=== PATIENT | female | born 1945 | race Caucasian/White ===

== ENCOUNTER → 2016-08-14 | Outpatient (CLI) | payer BC ==
[~2016-08-14] MED LIST: ALBU1AER9 INH; AMLO-110 PO; ASPI81TA28 PO; CLR10 PO; COQ10 PO; FLUT0.0529; GLC/500 PO; HYDR-4852 PO; IRBE1TAB50 PO; LPT10 PO; MULT-845 PO; POLY335019 PO; PSYL55.43 PO; SENN8.6C PO; SNG10 PO; SPR25 PO; ULT50X PO
[2016-08-14 12:14] LABS: ESTIMATED AVERAGE GLUCOSE 143 mg/dl; HA1C FLAG Normal (Normal)
[2016-08-14 13:02] LABS: ALB/GLOB RATIO 1.1 (0.9-2); ALKALINE PHOSPHATASE 85 U/L (45-117); ALT/SGPT 27 U/L (12-78); AST/SGOT 16 U/L (15-37); BLOOD UREA NITROGEN 16 mg/dl (7-18); BUN/CREATININE RATIO 20.6 (10-20); CALCIUM 9.5 mg/dl (8.5-10.1); CARBON DIOXIDE 30 mmol/L (21-32); CHLORIDE 96 mmol/L (98-107); CREATININE 0.76 mg/dl (0.60-1.20); GLUCOSE 104 mg/dl (70-99); HDL CHOLESTEROL 60 mg/dl; POTASSIUM 4.6 mmol/L (3.5-5.1); SODIUM 134 mmol/L (136-145)
[2016-08-14 13:03] LABS: CHOLESTEROL 168 mg/dl (0-200); CHOLESTEROL/HDL RATIO 2.8; LDL CHOLESTEROL CALCULATED 75 mg/dl; TRIGLYCERIDES 167 mg/dl (0-150); VERY LOW DENSITY LIPOPROT CALC 33 mg/dl
== END | disposition home or self-care (01) ==
LOC: C.LAB 10:54
PROVIDERS: ATTEND Family Medicine
DX: E11.9 Type 2 diabetes mellitus without complications (principal); E78.00 Pure hypercholesterolemia, unspecified

== ENCOUNTER → 2016-08-28 | Outpatient (CLI) | payer BC ==
--- NOTE | 2016-08-28 09:26 | DIAGNOSTIC IMAGING REPORT ---
GI SERIES W/AIR ROUTINE CLINICAL HISTORY: Epigastric pain COMPARISON STUDY: None FLUOROSCOPY TIME: 3.2 minutes. FINDINGS: The patient swallowed effervescent granules and barium. There is a sliding hiatal hernia with distal esophageal ring. There was marked reflux. Several subtle distal esophageal erosions are suspected. No gastric masses are visualized. There is no gastric outlet obstruction. The duodenal bulb appears normal. The ligament of Treitz is located in the normal anatomical position. There is a small duodenal diverticulum. IMPRESSION: 1. Sliding hiatal hernia with a distal esophageal ring 2. Marked reflux 3. Suspected subtle distal esophageal erosions 4. No gastric or duodenal bulb abnormalities identified Electronically signed by: Zachary Covington M.D. 08/28/2016 9:25 AM Dictated Date/Time: 08/28/2016 9:22 AM
== END | disposition home or self-care (01) ==
LOC: C.RAD 07:59
PROVIDERS: ATTEND Family Medicine
DX: R10.13 Epigastric pain (principal); K44.9 Diaphragmatic hernia without obstruction or gangrene

== ENCOUNTER → 2017-03-05 | Outpatient (CLI) | payer BC | END | disposition home or self-care (01) | LOC: C.LABMFLN 11:40 | PROVIDERS: ATTEND Family Medicine | DX: R10.11 Right upper quadrant pain (principal) ==

== ENCOUNTER → 2017-03-12 | Outpatient (CLI) | payer BC ==
--- NOTE | 2017-03-12 09:55 | DIAGNOSTIC IMAGING REPORT ---
ABDOMINAL ULTRASOUND, RIGHT UPPER QUADRANT HISTORY: R10.11 Abdominal pain, acute, right upper quadrant. COMPARISON: None. FINDINGS: Pancreas: There is a possible 9 mm hypoechoic focus within the tail the pancreas. This is not well visualized due to the overlying bowel gas. Liver: Unremarkable. Gallbladder: No gallbladder wall thickening. No gallstones. CBD: 4 mm. Right kidney: No hydronephrosis. IMPRESSION: 1. Possible 9 mm hypoechoic focus within the tail the pancreas. This is not well visualized due to overlying bowel gas and could represent adjacent normal mesenteric fat. However, recommend dedicated pancreatic CT for further evaluation.. 2. Normal gallbladder. No gallstones. Electronically signed by: Tre Garcia M.D. 03/12/2017 9:54 AM Dictated Date/Time: 03/12/2017 9:52 AM
== END | disposition home or self-care (01) ==
LOC: C.ULTR 09:07
PROVIDERS: ATTEND Family Medicine
DX: R10.11 Right upper quadrant pain (principal); R93.5 Abnormal findings on diagnostic imaging of other abdominal regions, including retroperitoneum

== ENCOUNTER → 2017-03-12 | Outpatient (CLI) | payer BC | END | disposition home or self-care (01) | LOC: C.MAMM 10:44 | PROVIDERS: ATTEND Family Medicine | DX: M85.88 Other specified disorders of bone density and structure, other site (principal); M85.852 Other specified disorders of bone density and structure, left thigh; M85.851 Other specified disorders of bone density and structure, right thigh ==

== ENCOUNTER → 2017-04-10 | Outpatient (CLI) | payer BC ==
--- NOTE | 2017-04-11 07:44 | MAMMOGRAPHY REPORT ---
BILATERAL DIGITAL SCREENING MAMMOGRAM WITH CAD: 04/10/2017 CLINICAL HISTORY: Routine screening. Patient has no complaints. TECHNIQUE: Bilateral CC and MLO views were obtained. Current study was also evaluated with a Compute r Aided Detection (CAD) system. COMPARISON: Comparison is made to exam dated: 04/06/2016 mammogram - [facility]. BREAST COMPOSITION: There are scattered areas of fibroglandular density in both breasts. FINDINGS: There is evidence of prior bilateral breast surgery. There are benign vascular calcificati ons in both breasts. No suspicious mass, architectural distortion or cluster of microcalcifications is seen. IMPRESSION: ACR BI-RADS CATEGORY 2: BENIGN There is no mammographic evidence of malignancy. A 1 year screening mammogram is recommended. The pa tient will receive written notification of the results. Approximately 10% of breast cancers are not detected with mammography. A negative mammographic report should not delay biopsy if a clinically suggestive mass is present. Alyssa Guevara M.D. ay/:04/10/2017 15:03:27 Grain Merchandising Manager: Yisel NGUYỄN(R)(Emil)(BD), [facility] letter sent: Normal 1/2 BI-RADS Code: ACR BI-RADS Category 2: Benign
== END | disposition home or self-care (01) ==
LOC: C.MAMM 13:15
PROVIDERS: ATTEND Family Medicine
DX: Z12.31 Encounter for screening mammogram for malignant neoplasm of breast (principal)

== ENCOUNTER 2020-03-12 07:09 | Inpatient (IN) ==
--- NOTE | 2020-02-26 14:23 | PAT Medication Instructions ---
Medication Instructions Date of Service February 26, 2020 Home Medications Medication Instructions Recorded montelukast 10 mg tablet 10 mg PO QPM #90 tab 07/01/19 ibandronate 150 mg tablet 150 mg PO .COMPLEX #1 tab 10/14/19 albuterol sulfate 90 mcg/actuation 2 puffs INH Q4H PRN #18 gm 10/27/19 aerosol inhaler metformin 500 mg tablet 500 mg PO BID #180 tab 10/28/19 tramadol 50 mg tablet 50 mg PO QID PRN #120 tab 01/12/20 montelukast 10 mg tablet 10 mg PO QPM ibandronate 150 mg tablet 150 mg PO .COMPLEX albuterol sulfate 90 mcg/actuation aerosol inhaler 2 puffs INH Q4H PRN metformin 500 mg tablet 500 mg PO BID tramadol 50 mg tablet 50 mg PO QID PRN acetaminophen [Tylenol] 650 mg PO QID PRN amlodipine [Norvasc] 10 mg PO QAM aspirin [Adult Low Dose Aspirin] 81 mg PO QAM atorvastatin 20 mg PO QAM fluticasone propionate [Flonase Allergy Relief] 2 sprays INTNAS DAILY PRN multivitamin 1 tab PO QAM vitamins A,C,S-fwcp-ibfkti [PreserVision AREDS] 1 tab PO QAM Continue as directed ibandronate 150 mg tablet 150 mg PO .COMPLEX ASK your prescriber and surgeon aspirin [Adult Low Dose Aspirin] 81 mg PO QAM STOP taking 2 weeks before surgery (or as soon as possible if surgery is within 2 weeks) PreserVision AREDS] 1 tab PO QAM DO NOT take the morning of surgery metformin 500 mg tablet 500 mg PO BID multivitamin 1 tab PO QAM Take morning of surgery With a small sip of water, OTHERWISE NOTHING TO EAT OR DRINK AFTER MIDNIGHT: albuterol sulfate 90 mcg/actuation aerosol inhaler 2 puffs INH Q4H PRN (use if needed; please bring with you to hospital day of surgery if possible) tramadol 50 mg tablet 50 mg PO QID PRN (okay to take up to 4 hours prior to surgery if needed) acetaminophen [Tylenol] 650 mg PO QID PRN (okay to take up to 4 hours prior to surgery if needed) amlodipine [Norvasc] 10 mg PO QAM atorvastatin 20 mg PO QAM fluticasone propionate [Flonase Allergy Relief] 2 sprays INTNAS DAILY PRN (if needed) Take evening before surgery montelukast 10 mg tablet 10 mg PO QPM albuterol sulfate 90 mcg/actuation aerosol inhaler 2 puffs INH Q4H PRN (if needed) metformin 500 mg tablet 500 mg PO BID tramadol 50 mg tablet 50 mg PO QID PRN (if needed) acetaminophen [Tylenol] 650 mg PO QID PRN (if needed) fluticasone propionate [Flonase Allergy Relief] 2 sprays INTNAS DAILY PRN (if needed) Other Notes If you have any questions please call us at [phone] or [phone] or [phone] or [phone]
--- NOTE | 2020-02-27 11:13 | Anesthesiology Consultation ---
Date of Service February 27, 2020 Assessment & Plan (1) Encounter for pre-operative examination: COVID Status: As of 02/26 assessment, patient denies travel to endemic area, known exposure/sick contacts, or symptoms of COVID19. Patient instructed that they and their household members must follow strict social distancing guidelines, wear a mask in public and avoid travel for 14 days prior to surgery. Preoperative COVID19 testing to be completed prior to surgery per surgeon's arra ngements. Patient made aware to self-isolate as much as possible between COVID testing and surgery. S/P 2013 lumbar dec/fusion @ [facility] = MAC #3, ETT 7.0, grade view III. Chart Review Chart Review: Acceptable Risk for Surgery (pending surgeon-ordered PCP clearance 03/05) and Patient seen in Pre Admission Testing Teaching & Discussion Instructed NPO after midnight before surgery, except medications with 15 cc of water. Medication instructions provided according to the PAT guidelines. History Surgery Operation Date: 03/12/20 07:45 Proposed Procedures p L2-L3 Decompression, L2-L5 Fusion, L3-L5 Hardware Removal, Spinal Cord Monitoring - Nicolás Cardoza, Height/Weight Height: 5 ft 4 in Weight: 56.699 kg Allergies Allergy/AdvReac Type Severity Reaction Status Date / Time morphine Allergy Mild mental Verified 02/19/20 12:11 confusion colestipol Allergy Unknown "FELT Verified 02/19/20 12:11 AWFUL" hydrochlorothiazide Allergy Unknown Unknown Verified 02/19/20 12:11 lovastatin Allergy Unknown MUSCLE Verified 02/19/20 12:11 ACHES Medications Home Medications Medication Instructions Recorded Confirmed Last Taken blood sugar diagnostic #10 ea 03/03/19 02/17/20 Unknown lancets #50 ea 03/03/19 02/17/20 Unknown montelukast 10 mg tablet 10 mg PO QPM #90 tab 07/01/19 02/19/20 Unknown ibandronate 150 mg tablet 150 mg PO .COMPLEX #1 tab 10/14/19 02/19/20 Unknown albuterol sulfate 90 mcg/actuation 2 puffs INH Q4H PRN #18 gm 10/27/19 02/19/20 Unknown aerosol inhaler metformin 500 mg tablet 500 mg PO BID #180 tab 10/28/19 02/19/20 Unknown tramadol 50 mg tablet 50 mg PO QID PRN #120 tab 01/12/20 02/19/20 Unknown acetaminophen [Tylenol] 650 mg PO QID PRN 02/19/20 02/19/20 Unknown amlodipine [Norvasc] 10 mg PO QAM 02/19/20 02/19/20 Unknown aspirin [Adult Low Dose Aspirin] 81 mg PO QAM 02/19/20 02/19/20 Unknown atorvastatin 20 mg PO QAM 02/19/20 02/19/20 Unknown fluticasone propionate [Flonase 2 sprays INTNAS DAILY PRN 02/19/20 02/19/20 Unknown Allergy Relief] multivitamin 1 tab PO QAM 02/19/20 02/19/20 Unknown vitamins A,C,P-wukk-qqvqcb 1 tab PO QAM 02/19/20 02/19/20 Unknown [PreserVision AREDS] Past Medical History Medical History Diabetes 1.5, managed as type 2 History of asthma Using albuterol inhaler almost every morning, sometimes in evenings depending on season. HTN (hypertension) Hypercholesterolemia Myofascial pain Osteoporosis Pain of left breast Chronic. Has had mammograms, been seen by breast care center in [place], no etiology. Poor historian Sacroiliitis Exercise / Class Metabolic Activity II 4-5 Yardwork/Stairs/Walk up hill Past Family History Family History Unknown No pertinent family history Past Surgical History Surgical History H/O hysterectomy for benign disease History of bladder surgery History of cardiac cath NO STENTS NEEDED-MANY YRS AGO History of cataract surgery R/L History of colonoscopy History of lumbar spinal fusion Hx of appendectomy Hx of breast reduction, elective Hx of tubal ligation Past Anesthesia History No Hx of Anesthesia Complications and No Family Hx of Anesthesia Complications History of PONV No Hx of PONV and No Hx of Motion Sickness Social History Smoking Status: Never smoker Do You Dip or Chew Tobacco: No Hx Alcohol Use: No Hx Substance Use: No Review of Systems Pt denies any recent chest pain, shortness of breath, palpitations, cough, fever, URI, or uncontrolled acid reflux. Physical Exam Vital Signs BP: 155/80 (pt reports anxiety today) P: 86bpm SPO2: 96% RA T: 98.3 F R: 12 ENMT Mouth: no dental restorations, no chipped teeth and no loose teeth Thyromental Distance: < 3.5 Finger Breadths (3) Mallampati Class: II Neck + shortened thyromental distance; neck extension not limited Respiratory normal respiratory effort Auscultation: lungs clear to auscultation bilaterally Cardiovascular Rate/Rhythm: regular rate and regular rhythm Heart Sounds: no murmur Extremities: no edema Testing Laboratory Results 02/27/20 11:20 02/27/20 11:20 PT 10.6 Seconds (9.0-12.0) 02/27/20 11:20 INR 1.0 (0.9-1.1) 02/27/20 11: APTT 23.0 Seconds (21.0-31.0) 02/27/20 11:20 Hemoglobin A1c 7.5 % (4.5-5.6) H 02/27/20 11:20 Urine Color Dark Yellow 02/27/20 11:20 Urine Appearance Clear (Clear) 02/27/20 11:20 Urine pH 5.0 (4.5-7.5) 02/27/20 11:20 Ur Specific Vance 1.035 (1.000-1.030) H 02/27/20 11:20 Urine Protein Negative (Negative) 02/27/20 11:20 Urine Glucose (UA) 1+ (Negative) H 02/27/20 11:20 Urine Ketones 1+ (Negative) H 02/27/20 11:20 Urine Nitrite Negative (Negative) 02/27/20 11:20 Ur Leukocyte Esterase Negative (Negative) 02/27/20 11:20 Blood Type B Negative 02/27/20 11:20 Antibody Screen POSITIVE A 02/27/20 11:20 Spoke with Myrtle at [facility] re: + antibodies (anti-D and anti-C). No further pre-op workup will be needed for this patient. Electrocardiogram Date: 02/27/20 Findings: + NSR @ (81bpm) No significant change from 2013. Chest X-Ray Date: 02/27/20 Findings: + NAD
[2020-02-27 12:28] LABS: Basophils # (auto) 0.02 K/uL (0-0.2); Basophils % (auto) 0.2 %; Eosinophils # (auto) 0.04 K/uL (0-0.5); Eosinophils % (auto) 0.4 %; Hematocrit (blood only) 38.2 % (37-47); Hemoglobin 12.7 g/dL (12.0-16.0); Immature Granulocytes # (auto) 0.04 K/uL (0.00-0.02); Immature Granulocytes % (auto) 0.4 %; Lymphocytes # (auto) 2.34 K/uL (1.2-3.4); Lymphocytes % (auto) 20.6 %; Mean Corpuscular Hemoglobin 32.2 pg (25-34); Mean Corpuscular Hgb Conc 33.2 g/dL (32-36); Mean Platelet Volume 9.2 fL (7.4-10.4); Monocytes # (auto) 1.24 K/uL (0.11-0.59); Monocytes % (auto) 10.9 %; Neutrophils % (auto) 67.5 %; Platelet Count 438 K/uL (130-400); RDW Coefficient of Variation 13.7 % (11.5-14.5); RDW Standard Deviation 48.9 fL (36.4-46.3); Red Blood Count 3.94 M/uL (4.2-5.4); White Blood Count 11.38 K/uL (4.8-10.8)
[2020-02-27 12:35] LABS: BUN Creatinine Ratio 27.6 (10-20); Calcium 9.6 mg/dl (8.5-10.1); Creatinine Clr Calc Pharmacy 58.4 ml/min; Est GFR (Non-African American) 81.1; Potassium 3.6 mmol/L (3.5-5.1)
--- NOTE | 2020-02-27 12:36 | XRay Report ---
TWO VIEW CHEST CLINICAL HISTORY: Preoperative examination. FINDINGS: PA and lateral chest radiographs are compared to study dated 10/16/2018. The cardiomediastin al silhouette is unremarkable noting atherosclerotic calcification of the thoracic aorta. The lungs and pleural spaces are clear. There is no pneumothorax. The skeletal structures are osteopenic. A com pression deformity is noted at the thoracolumbar junction. Fusion hardware is partially imaged in the lumbar spine. IMPRESSION: No active disease in the chest. ACT 112: Negative or not required by law. Electronically signed by: Gordon Banda M.D. 02/27/2020 12:35 PM
[2020-02-27 12:38] LABS: Appearance Urine Clear (Clear); Blood Urine Negative (Negative); Color Urine Dark Yellow; Glucose Urine UA 1+ (Negative); Ketones Urine 1+ (Negative); Leukocyte Esterase Urine Negative (Negative); Nitrite Urine Negative (Negative); Partial Thromboplastin Ratio 0.8; Protein Urine Negative (Negative); Prothrombin Time 10.6 Seconds (9.0-12.0); Specific Gravity Urine 1.035 (1.000-1.030); Urobilinogen Urine Negative (Negative)
[2020-02-27 12:40] LABS: Estimated Average Glucose 169 mg/dl; Hemoglobin A1C 7.5 % (4.5-5.6)
[2020-02-27 12:50] LABS: Bilirubin Urine Negative (Negative); Ictotest Urine Negative (Negative)
--- NOTE | 2020-02-27 23:00 | Electrocardiogram Report ---
Test Reason : Blood Pressure : / mmHG Vent. Rate : 081 BPM Atrial Rate : 081 BPM P-R Int : 174 ms QRS Dur : 080 ms QT Int : 358 ms P-R-T Axes : 067 062 061 degrees QTc Int : 415 ms Normal sinus rhythm Normal ECG When compared with ECG of 22-DEC-2013 10:52, No significant change was found Confirmed by Venkata Mahmood ([id number]) on 02/27/2020 11:00:28 PM Referred By: Nicolás Cardoza Confirmed By:Venkata Mahmood
[~2020-03-12 07:09] MED LIST changes: +ACETAMINOPHEN 500 MG TAB PO SCH; -ALBU1AER9 INH; -AMLO-110 PO; -ASPI81TA28 PO; -CLR10 PO; -COQ10 PO; +CeleBREX 200 MG CAP PO SCH; -FLUT0.0529; +GABAPENTIN 300 MG CAP PO SCH; -GLC/500 PO; -HYDR-4852 PO; -IRBE1TAB50 PO; -LPT10 PO; +LR 15ML/HR IV SCH; -MULT-845 PO; -POLY335019 PO; -PSYL55.43 PO; -SENN8.6C PO; -SNG10 PO; -SPR25 PO; -ULT50X PO; +ceFAZolin 1000MG 1,000 MG/7.5 ML SYR IV SCH
[2020-03-12] MEDS ORDERED: NEOSTIGMINE METHYLSULFATE 1 MG/ML 10ML VIAL ONE ×2 (08:21→11:46)
[2020-03-12] MEDS ORDERED: ONDANSETRON INJ 2 MG/ML 2 ML VIAL ONE ×2 (08:21→11:35)
[2020-03-12] MEDS ORDERED: fentaNYL citrate 100 MCG/2 ML VIAL ONE ×3 (08:21→12:36)
[2020-03-12] MEDS ORDERED: GLYCOPYRROLATE 0.2 MG/ML VIAL ONE ×2 (08:21→11:46)
[2020-03-12] MEDS ORDERED: MIDAZOLAM HCL 1 MG/ML 2ML VIAL ONE (08:21)
[2020-03-12] MEDS ORDERED: PROPOFOL IV EMULSION 10 MG/ML 20 ML VIAL IV ONE (08:21)
[2020-03-12] MEDS ORDERED: ROCURONIUM BROMIDE 10 MG/ML 5 ML VIAL IV ONE (08:21)
[2020-03-12] MEDS ORDERED: DEXAMETHASONE SOD INJ 4 MG/ML VIAL ONE (08:21)
[2020-03-12] MEDS ORDERED: LIDOCAINE HCL 2% 2 ML VIAL/AMP(20MG/ML) INFIL ONE (08:21)
--- NOTE | 2020-03-12 08:45 | History & Physical Bridge Note ---
Date of Service March 12, 2020 History & Physical Bridge Note I have examined the patient, reviewed the History & Physical and in the interval since the performance of the History & Physical I have noted the following changes of clinical significance: no changes noted
--- NOTE | 2020-03-12 08:46 | History & Physical Report ---
Date of Service March 12, 2020 Assessment & Plan (1) Neurogenic claudication due to lumbar spinal stenosis: Admission and Anticipated Discharge Date Admission Date: L2-L3 decompression, L2-L5 fusion, L3-L5 with hardware removal History of Present Illness Chief Complaint: Back and leg pain Primary Care Provider: Gordon Sellers MD This is a 74-year-old female who presents with chronic persistent back and leg pain after failing course of nonoperative care she is here for surgical intervention. Allergies Allergy/AdvReac Type Severity Reaction Status Date / Time morphine Allergy Mild mental Verified 03/12/20 07:43 confusion colestipol Allergy Unknown "FELT Verified 03/12/20 07:43 AWFUL" hydrochlorothiazide Allergy Unknown Unknown Verified 03/12/20 07:43 lovastatin Allergy Unknown MUSCLE Verified 03/12/20 07:43 ACHES Home Medications Home Medications Medication Instructions Recorded Confirmed Type blood sugar diagnostic #10 ea 03/03/19 03/08/20 History lancets #50 ea 03/03/19 03/08/20 History montelukast 10 mg tablet 10 mg PO QPM #90 tab 07/01/19 03/12/20 Rx ibandronate 150 mg tablet 150 mg PO .COMPLEX #1 tab 10/14/19 03/12/20 Rx albuterol sulfate 90 mcg/actuation 2 puffs INH Q4H PRN #18 gm 10/27/19 03/12/20 Rx aerosol inhaler metformin 500 mg tablet 500 mg PO BID #180 tab 10/28/19 03/12/20 Rx tramadol 50 mg tablet 50 mg PO QID PRN #120 tab 01/12/20 03/12/20 Rx acetaminophen [Tylenol] 650 mg PO QID PRN 02/19/20 03/12/20 History amlodipine [Norvasc] 10 mg PO QAM 02/19/20 03/12/20 History aspirin [Adult Low Dose Aspirin] 81 mg PO QAM 02/19/20 03/12/20 History atorvastatin 20 mg PO QAM 02/19/20 03/12/20 History fluticasone propionate [Flonase 2 sprays INTNAS DAILY PRN 02/19/20 03/12/20 History Allergy Relief] multivitamin 1 tab PO QAM 02/19/20 03/12/20 History vitamins A,C,B-wzwp-mpbeyk 1 tab PO QAM 02/19/20 03/12/20 History [PreserVision AREDS] Past Med/Surg History Medical History Diabetes 1.5, managed as type 2 History of asthma Using albuterol inhaler almost every morning, sometimes in evenings depending on season. HTN (hypertension) Hypercholesterolemia Myofascial pain Osteoporosis Pain of left breast Chronic. Has had mammograms, been seen by breast care center in [place], no etiology. Poor historian Sacroiliitis Surgical History H/O hysterectomy for benign disease History of bladder surgery History of cardiac cath NO STENTS NEEDED-MANY YRS AGO History of cataract surgery R/L History of colonoscopy History of lumbar spinal fusion Hx of appendectomy Hx of breast reduction, elective Hx of tubal ligation Family History Unknown No pertinent family history Social History Smoking Status: Never smoker Second Hand Exposure: Yes (FATHER SMOKED); Do You Dip or Chew Tobacco: No; Hx Alcohol Use: No Hx Substance Use: No Preferred Language: Swedish Communication Ability: Effective Visual Impairment: No Limitations Hearing Ability: Normal Supervisor Cook Room Required: No Beliefs That Will Affect Care: None marital status: Current Living Situation: Spouse current occupational status: retired Other Information That Helps Us Care for You: No Feels Safe at Home: Yes Safety Concerns: Feels Safe At This Time Assistive Devices: Brace/Splint/Immobilizer and Glasses Assistive Devices Comment: BACK BRACE PRN Physical Exam Physical Exam: Patient is alert and oriented Heart regular rate and rhythm Lungs clear to auscultation Results & Data ([facility]) Vital Signs (Past 12 Hours) Vital Signs Temp Pulse Resp BP Pulse Ox 03/12/20 07:53 36.8 C 90 20 174/89 H 98
[2020-03-12] MEDS ORDERED: BUPIVACAINE/EPINEPHRINE 0.25% 1:200,000 30 ML VIAL ONE (09:08)
[2020-03-12] MEDS ORDERED: BACITRACIN INJ 50,000 UNIT VIAL ONE ×2 (09:08)
[2020-03-12] MEDS ORDERED: FLOSEAL HEMOSTATIC MATRIX 10ML TOP ONE (11:29)
--- NOTE | 2020-03-12 11:46 | Operative Report ---
Post Operative Report Pre & Post Diagnosis Operation Date: 03/12/20 09:05 Pre-Op Diagnosis: Spinal Stenosis, Lumbar Region with Neurogenic Claudication Post-Op Diagnosis: Spinal Stenosis, Lumbar Region with Neurogenic Claudication I identified the patient and participated in the time-out.: Yes Procedure Operation Date: 03/12/20 09:05 Actual Procedures #1 removal of posterior instrumentation L3-4 L4-5 per #2 exploration of fusion L3-4 L4-5. #3 lumbar decompression with bilateral medial facetectomies and foraminotomies L1-2 and L2-3. #4 posterior spinal fusion L2-3. #5 placement posterior instrumentation L2-3. #6 interbody fusion L2-3. #7 placement of peek cage 8 x 22 mm at L2-3. #8 placement locally harvested morselized autograft in the posterior lateral gutters. #9 placement infuse collagen sponge, master graft in the posterior lateral gutters and ostial amp and interbody space. Surgeon Nicolás Cardoza, Production Line Solderer Basim Isaacs Estimated Blood Loss 150 Findings Consistent with Post-Op Diagnosis Specimens None Indications This is a 74-year-old female well-known to me the presents with above-mentioned diagnosis after failing course of nonoperative care is here for the above- mentioned procedure. Description of Procedure Patient was met with identified informed consent obtained. Patient was then taken to the operative suite Eyes inspected to ensure no external pressure placed upon the. This point the lumbar spine was prepped and draped in a xochilt rile fashion. Sharp dissection with the assistance of Bovie cautery was performed down to and exposing the lamina and transverse processes of L2 and instrumentation at L3-L4-L5 bilaterally. Then proceeded to remove the hardware bilaterally explore the fusion mass noting it to be mature and intact. And then performed a complete laminectomy of L2 partial laminectomy L1 including bilateral medial facetectomies and and foraminotomies addressing severe spinal stenosis. Pedicle screws were then placed in L2 and L3 bilaterally with assistance of fluoroscopy and the properly sized gregorio placed. By way of a transfemoral approach on the right complete discectomy was performed endplates curetted to subcortical any bone and a 8 x 22 mm peek cage filled with osteobone graft tapped in position. The rods were then locked in final position bilaterally. The transverse processes of L2 and L3 burred to subcortical bleeding bone. Infuse collagen sponge master graft local autograft was placed in the posterior lateral gutters. 15 round BAYRON drain inserted. The incision was then closed with 1 Vicryl the fascia 2-0 Vicryl subcutaneously and 4 Monocryl for final skin closure. Steri-Strip sterile dressings placed. Patient waken taken to PACU stable condition. Please note spinal cord monitoring was utilized at the procedure no changes noted. Lastly Basmi Isaacs was present at the entire surgery involved the patient positioning complex portions of the surgery and final skin closure. I attest to the content of the Intraoperative Record and any orders documented therein. Any exceptions are noted below.
--- NOTE | 2020-03-12 11:47 | Fluoroscopy Report ---
FL lumbar spine 2-3V CLINICAL HISTORY: L2-L3 DECOMPRESSION L2-L5 FUSION L3-L5 HW REMOVAL COMPARISON STUDY: Lumbar spine radiographs November 19, 2019. FLUOROSCOPY TIME: 11 seconds. FLUOROSCOPIC IMAGES: 2 FINDINGS: L3-L5 hardware has been removed. A previous L4-L5 discectomy is noted. Interval L2-L3 disce ctomy with interbody spacer placement as noted. Posterior decompression is noted. There are bilateral pedicle screws at the L2 and L3 levels. Hardware is intact. There are no unexpected radiopaque forei gn bodies. Old L1 compression fracture is unchanged. IMPRESSION: Interval L2-L3 discectomy, posterior decompression and bilateral pedicle screw fusion. ACT 112: Negative or not required by law. Electronically signed by: Chet Hastings M.D. 03/12/2020 11:45 AM
[2020-03-12] MEDS: fentaNYL citrate 100 MCG/2 ML VIAL IV PRN ×4 (12:38→12:53)
[2020-03-12] MEDS ORDERED: fentaNYL citrate 100 MCG/2 ML VIAL IV PRN (12:58)
[2020-03-12] MEDS ORDERED: ePHEDrine sulfate 50 MG/ML AMP IV PRN (12:58)
[2020-03-12] MEDS ORDERED: ONDANSETRON INJ 2 MG/ML 2 ML VIAL IV PRN ×2 (12:58→13:36)
[2020-03-12] MEDS ORDERED: ATROPINE SULFATE 0.1 MG/ML 10ML SYR IV PRN (12:58)
--- NOTE | 2020-03-12 13:30 | Anesthesiology Progress Note ---
Date of Service March 12, 2020 Anesthesia Post Procedure Vital Signs Vital Signs: Temp Pulse Pulse Resp BP BP Pulse Ox 03/12/20 13:15 75 13 129/62 98 03/12/20 13:10 36.2 C L 72 17 144/65 H 97 03/12/20 13:00 72 12 138/65 97 03/12/20 12:50 72 13 131/65 99 03/12/20 12:40 72 14 154/66 H 98 03/12/20 12:30 73 10 L 146/65 H 99 03/12/20 12:20 72 12 155/73 H 100 03/12/20 12:12 36.3 C L 73 11 L 107/79 99 03/12/20 07:53 36.8 C 90 20 174/89 H 98 Pain Intensity Lower Back: Pain Intensity: 4 Transfer of Care Handoff Completed per policy Notes Mental Status: alert / awake / arousable and participated in evaluation Patient Amnestic to Procedure: Yes Nausea / Vomiting: adequately controlled Pain: adequately controlled Airway Patency, RR, SpO2: stable & adequate BP & HR: stable & adequate Hydration State: stable & adequate Anesthetic Complications: no major complications apparent and Pt Satisfied with anesthetic care
[2020-03-12] MEDS: SODIUM CHLORIDE 0.9% 1000ML 1,000 ML IV SCH ×2 (13:35→21:31)
[2020-03-12] MEDS ORDERED: METOCLOPRAMIDE HCL INJ 5 MG/ML 2 ML VIAL IV PRN (13:36)
[2020-03-12] MEDS ORDERED: PROMETHAZINE HCL 12.5 MG in SODIUM CHLORIDE 0.9% 50 ML IV PRN (13:36)
[2020-03-12] MEDS ORDERED: NALOXONE HCL 0.4 MG/1 ML VIAL/CARP IV PRN (13:36)
[2020-03-12] MEDS ORDERED: bisacodyL 10 MG SUPP PR PRN (13:36)
[2020-03-12] MEDS ORDERED: hydrOXYzine HCl 25 MG TAB PO PRN (13:36)
[2020-03-12] MEDS ORDERED: FAMOTIDINE 20 MG TAB PO PRN (13:36)
[2020-03-12] MEDS ORDERED: SOD PHOSPHATE/SOD BIPHOSPHATE ENEMA 132 ML BTL PR PRN (13:36)
[2020-03-12] MEDS ORDERED: diphenhydrAMINE Capsule 25 MG CAP PO PRN (13:36)
[2020-03-12] MEDS ORDERED: LORazepam 0.5 MG/1 ML VIAL IV PRN (13:36)
[2020-03-12] MEDS ORDERED: DO NOT ADMINISTER FLU VACCINE PRN (13:36)
[2020-03-12] MEDS ORDERED: ONDANSETRON 4 MG OD TAB PO PRN (13:36)
[2020-03-12] MEDS ORDERED: ACETAMINOPHEN 1,000 MG/100 ML VIAL IV PRN (13:36)
[2020-03-12] MEDS ORDERED: LORazepam 0.5 MG TAB PO PRN (13:36)
[2020-03-12] MEDS ORDERED: DO NOT ADMINISTER PNEUMOCOCCAL VACCINE PRN (13:36)
[2020-03-12] MEDS ORDERED: FLUTICASONE PROPIONATE NA SPR 16 GM BTL PRN (13:36)
[2020-03-12] MEDS ORDERED: ALUMINUM/MAGNESIUM SUSP 30 ML UDC PO PRN (13:36)
[2020-03-12] MEDS ORDERED: MAGNESIUM HYDROXIDE SUSP 30 ML UDC PO PRN (13:36)
[2020-03-12] MEDS ORDERED: ALBUTEROL HFA 8 GM INHALER INH PRN (13:36)
[2020-03-12] MEDS ORDERED: HYDROmorphone INJ 1 MG/ML SYRINGE IV PRN (13:36)
[2020-03-12] MEDS ORDERED: HYDROmorphone INJ 0.5 MG/0.5 ML SYR IV PRN (13:36)
[2020-03-12] MEDS ORDERED: PHARMACY GLYCEMIC MGMT CONSULT PRN (14:01)
[2020-03-12] MEDS ORDERED: CARBOHYDRATES FOR HYPOGLYCEMIA PO PRN (14:15)
[2020-03-12] MEDS ORDERED: GLUCOSE 40% GEL 15 GM TUBE PO PRN (14:15)
[2020-03-12] MEDS ORDERED: DEXTROSE 50% 50 ML SYRINGE IV PRN (14:15)
[2020-03-12] MEDS ORDERED: GLUCOSE 10 TABS/TUBE PO PRN (14:15)
[2020-03-12] MEDS ORDERED: GLUCAGON FOR INJ 1 MG VIAL SQ PRN (14:15)
--- NOTE | 2020-03-12 14:20 | Pharmacy Report ---
Pharmacy Glycemic Short Note 2 - Date of Service March 12, 2020 - Glycemic Short BSG Results (Last 24 hours): 03/12/20 03/12/20 07:41 12:22 POC Glucose 138 H 167 H OUTPATIENT ANTIDIABETIC REGIMEN: * METFORMIN 500 mg Po BID * A1c = 7.5% (02/27/20) ASSESSMENT: * Tova is a 74 yo female s/p spinal surgery * Pt is maintained on oral antidiabetic agents as an outpatient * Will hold oral agents for admission and utilize SQ basal bolus insulin regimen which is the recommended regimen for inpatient glycemic control. * A one time dose of NPH will be given to cover the effects of dexamethasone IV given in the OR * Novolog orders per weight stress/3 for POD #0 PLAN FOR INPATIENT GLYCEMIC CONTROL: * Hold outpatient oral diabetes medications * Basal insulin * NPH 15 units SQ x 1 * Bolus insulin * NovoLog per scale ACHS or Q6hrs while NPO * Goal Range: Low 110 mg/dL - High 140 mg/dL * Correction Factor: 25 mg/dL/unit * Nutritional / Prandial insulin per carb ratio of 1 unit per 9 grams CHO consumed PLAN FOR DISCHARGE: * A1c = 7.5% (02/27/20) * Recommend titration of metformin as tolerated to goal dose of 1000 mg PO BID * increase by 500 mg per week * administer with meals to avoid GI upset
[2020-03-12] MEDS ORDERED: NovoLIN-N (NPH) PER UNIT CHARGE SQ ONE (15:00)
[2020-03-12] MEDS: ceFAZolin 1000MG 1,000 MG/7.5 ML SYR IV SCH (16:52)
--- NOTE | 2020-03-12 18:03 | Hospitalist Consultation ---
Date of Consultation March 12, 2020 Assessment & Plan (1) Neurogenic claudication due to lumbar spinal stenosis: S/p removal of instrumentation of L3-4 & L4-5, decompression of L1-2 and L2-3, and fusion of L2-[address] Cardoza on 03/12/2020. - At risk for acute blood loss anemia - Will monitor hgb - Post-operative care per surgical team (2) HTN (hypertension): BP is 150/75 after surgery. - Continue amlodipine (3) Diabetes 1.5, managed as type 2: A1c was 7.5% this month. - Hold metformin - Sliding scale insulin - Glycemic pharmacist consulted (4) Hypercholesterolemia: - Continue statin (5) History of asthma: No shortness of breath on exam at this time. - Continue montelukast - DuoNebs PRN (6) DVT prophylaxis: SCDs - Heparin per primary team History of Present Illness Attending Physician: Nicolás Cardoza, DO History of Present Illness 74yo F w/ hx of DM, HTN, intractable back pain who presents as a routine consult for medical care after removal of instrumentation of L3-4 & L4-5, decompression of L1-2 and L2-3, and fusion of L2-3. In the immediate post-operative setting, she is comfortable and has no major issues. She reports she can feel the back is "there," but is not in pain per-se. She denies any shortness of breath, denies other pain, denies nausea, vomiting, or other issues. Allergies Allergy/AdvReac Type Severity Reaction Status Date / Time hydrochlorothiazide Allergy Unknown Unknown Verified 03/12/20 07:43 colestipol AdvReac Intermediate "FELT Verified 03/12/20 11:31 AWFUL" lovastatin AdvReac Mild MUSCLE Verified 03/12/20 11:31 ACHES morphine AdvReac Mild mental Verified 03/12/20 11:31 confusion Home Medications Home Medications Medication Instructions Recorded Confirmed Type blood sugar diagnostic #10 ea 03/03/19 03/08/20 History lancets #50 ea 03/03/19 03/08/20 History montelukast 10 mg tablet 10 mg PO QPM #90 tab 07/01/19 03/12/20 Rx ibandronate 150 mg tablet 150 mg PO .COMPLEX #1 tab 10/14/19 03/12/20 Rx albuterol sulfate 90 mcg/actuation 2 puffs INH Q4H PRN #18 gm 10/27/19 03/12/20 Rx aerosol inhaler metformin 500 mg tablet 500 mg PO BID #180 tab 10/28/19 03/12/20 Rx tramadol 50 mg tablet 50 mg PO QID PRN #120 tab 01/12/20 03/12/20 Rx acetaminophen [Tylenol] 650 mg PO QID PRN 02/19/20 03/12/20 History amlodipine [Norvasc] 10 mg PO QAM 02/19/20 03/12/20 History aspirin [Adult Low Dose Aspirin] 81 mg PO QAM 02/19/20 03/12/20 History atorvastatin 20 mg PO QAM 02/19/20 03/12/20 History fluticasone propionate [Flonase 2 sprays INTNAS DAILY PRN 02/19/20 03/12/20 History Allergy Relief] multivitamin 1 tab PO QAM 02/19/20 03/12/20 History vitamins A,C,[id number]-tszt-mngymp 1 tab PO QAM 02/19/20 03/12/20 History [PreserVision AREDS] Patient History Medical History Diabetes 1.5, managed as type 2 History of asthma Using albuterol inhaler almost every morning, sometimes in evenings depending on season. HTN (hypertension) Hypercholesterolemia Myofascial pain Osteoporosis Pain of left breast Chronic. Has had mammograms, been seen by breast care center in [place], no etiology. Poor historian Sacroiliitis Surgical History H/O hysterectomy for benign disease History of bladder surgery History of cardiac cath NO STENTS NEEDED-MANY YRS AGO History of cataract surgery R/L History of colonoscopy History of lumbar spinal fusion Hx of appendectomy Hx of breast reduction, elective Hx of tubal ligation Family History Unknown No pertinent family history Social History Smoking Status: Never smoker Second Hand Exposure: Yes (FATHER SMOKED); Do You Dip or Chew Tobacco: No; Hx Alcohol Use: No Hx Substance Use: No Preferred Language: Croatian Communication Ability: Effective Visual Impairment: No Limitations Hearing Ability: Normal Basket Maker Required: No Beliefs That Will Affect Care: None marital status: Current Living Situation: Spouse current occupational status: retired Other Information That Helps Us Care for You: No Feels Safe at Home: Yes Safety Concerns: Feels Safe At This Time Assistive Devices: Brace/Splint/Immobilizer and Glasses Assistive Devices Comment: BACK BRACE PRN Review of Systems Review of Systems: All systems reviewed & are unremarkable except as noted in HPI & below Physical Exam Constitutional: WD/WN, vitals as above Eyes: EOM intact bilaterally; no conjunctival abnormality ENMT: external ear and nose normal, oropharynx normal Neck: trachea midline, no thyromegaly normal visual inspection Respiratory: normal respiratory effort, lungs clear to auscultation no respiratory distress Cardiovascular: RRR, no murmur, no edema Gastrointestinal (Abdomen): Inspection/Auscultation: abdomen normal to inspection; abdomen not distended Musculoskeletal: no cyanosis or clubbing, extremities motor strength 5/5 Spine: + lumbar spinal tenderness (Bandage and drain present.) Skin: no rashes, warm and dry Neurologic: moves all extremities and awake Psychiatric: Orientation: alert, oriented to person and cooperative Results & Data Results & Data ([facility]) Vital Signs (Past 12 Hours) Vital Signs Temp Pulse Pulse Pulse Resp BP BP 03/12/20 17:25 03/12/20 16:32 36.2 C L 82 77 14 148/73 H 03/12/20 15:25 36.8 C 76 16 138/67 03/12/20 14:25 73 16 139/68 03/12/20 13:57 36.4 C L 76 14 144/69 H 03/12/20 13:25 36.5 C 71 16 149/69 H 03/12/20 13:15 75 13 129/62 03/12/20 13:10 36.2 C L 72 17 144/65 H 03/12/20 13:00 72 12 138/65 03/12/20 12:50 72 13 131/65 03/12/20 12:40 72 14 154/66 H 03/12/20 12:30 73 10 L 146/65 H 03/12/20 12:20 72 12 155/73 H 03/12/20 12:12 36.3 C L 73 11 L 107/79 03/12/20 07:53 36.8 C 90 20 174/89 H Pulse Ox 03/12/20 17:25 96 03/12/20 16:32 100 03/12/20 15:25 99 03/12/20 14:25 98 03/12/20 13:57 98 03/12/20 13:25 97 03/12/20 13:15 98 03/12/20 13:10 97 03/12/20 13:00 97 03/12/20 12:50 99 03/12/20 12:40 98 03/12/20 12:30 99 03/12/20 12:20 100 03/12/20 12:12 99 03/12/20 07:53 98 PG Care Time/CCT Total # of Minutes Spent Total Time Spent with Patient: Total time spent is greater than 50% in coordination of care (as documented) at patient's floor/unit and/or counseling patient: Coding Level of Care Code 88807 Inpt Consult Level 3 Diagnoses Neurogenic claudication due to lumbar spinal stenosis M48.062 HTN (hypertension) I10 Diabetes 1.5, managed as type 2 E13.9 Hypercholesterolemia E78.00 History of asthma Z87.09 DVT prophylaxis Z29.9
[2020-03-12] MEDS: INSULIN ASPART 100 UNITS/ML 3 ML PEN SC SCH ×2 (18:15→21:22)
[2020-03-12] MEDS: DOCUSATE SODIUM/SENNA 50/8.6MG TAB PO SCH (21:23)
[2020-03-12] MEDS: MONTELUKAST SODIUM 10 MG TABLET PO SCH (21:23)
[2020-03-13] MEDS: ceFAZolin 1000MG 1,000 MG/7.5 ML SYR IV SCH (00:09)
[2020-03-13] MEDS: traMADol HCL 50 MG TABLET PO PRN ×2 (01:42→12:51)
[2020-03-13] MEDS: POLYETHYLENE (MIRALAX) 17 GM PACK PO SCH ×4 (05:46→22:32)
[2020-03-13 06:04] LABS: Basophils # (auto) 0.01 K/uL (0-0.2); Basophils % (auto) 0.1 %; Hematocrit (blood only) 30.1 % (37-47); Hemoglobin 10.2 g/dL (12.0-16.0); Immature Granulocytes # (auto) 0.04 K/uL (0.00-0.02); Immature Granulocytes % (auto) 0.3 %; Lymphocytes # (auto) 1.41 K/uL (1.2-3.4); Lymphocytes % (auto) 11.6 %; Mean Corpuscular Hemoglobin 33.1 pg (25-34); Mean Corpuscular Hgb Conc 33.9 g/dL (32-36); Mean Corpuscular Volume 97.7 fL (80-100); Mean Platelet Volume 8.9 fL (7.4-10.4); Monocytes # (auto) 1.24 K/uL (0.11-0.59); Monocytes % (auto) 10.2 %; Neutrophils % (auto) 77.8 %; Platelet Count 259 K/uL (130-400); RDW Coefficient of Variation 13.4 % (11.5-14.5); RDW Standard Deviation 47.6 fL (36.4-46.3); Red Blood Count 3.08 M/uL (4.2-5.4)
[2020-03-13 06:35] LABS: BUN Creatinine Ratio 17.1 (10-20); Calcium 8.3 mg/dl (8.5-10.1); Creatinine Clr Calc Pharmacy 57.6 ml/min; Est GFR (African American) 92.5; Est GFR (Non-African American) 79.8
[2020-03-13] MEDS: oxyCODONE HCL IR 5 MG TAB (IMMEDIATE RELEASE) PO PRN ×4 (07:41→22:31)
--- NOTE | 2020-03-13 08:21 | Orthopedic Progress Note ---
Date of Service March 13, 2020 Assessment & Plan (1) Neurogenic claudication due to lumbar spinal stenosis: Patient will start with physical therapy today. Continue DVT prophylaxis is in the form teds and SCDs. Continue with pain control and aggressive bowel regimen. Anticipate discharge home possibly Sunday. Admission and Anticipated Discharge Date Admission Date: March 12, 2020 Supervising Physician Co-Signing Physician Notes Dr. Nicolás Cardoza Subjective Patient is postoperative day 1 hardware removal L3-5, decompression fusion L2-3. She is doing well. She had an uneventful evening. Pain is controlled. BAYRON drain output last shift was 185 cc. H&H is morning are 10.2 and 30.1 respecti vely. No new complaints. Review of Systems Review of Systems: All systems reviewed & are unremarkable except as noted in HPI & below Physical Exam Physical Exam: She is lying in bed in no acute distress. She is alert and oriented x3. Lumbar dressing is clean dry and intact. Lower extremities Are Soft and Nontender. Strength Is Intact Bilateral Lower Extremities. Constitutional: WD/WN, vitals as above Eyes: normal visual mcneil by confrontation ENMT: external ear and nose normal, oropharynx normal Neck: normal visual inspection Respiratory: normal respiratory effort Cardiovascular: Vessels: dorsalis pedis pulses present Extremities: normal capillary refill Chest (Breasts): Chest: normal inspection of chest Gastrointestinal (Abdomen): Inspection/Auscultation: abdomen normal to inspection Musculoskeletal: no cyanosis or clubbing, extremities motor strength 5/5 Skin: no rashes, warm and dry Neurologic: normal touch/pain/proprioception and moves all extremities Psychiatric: A+Ox3, euthymic affect Results & Data ([facility]) Vital Signs (Past 12 Hours) Vital Signs Temp Pulse Pulse Resp BP Pulse Ox 03/13/20 07:57 36.6 C 78 16 145/64 H 97 03/13/20 02:50 36.5 C 77 15 132/66 97 03/12/20 23:15 36.6 C 95 H 16 149/70 H 97
[2020-03-13] MEDS: MULTIVITAMIN TAB PO SCH (08:59)
[2020-03-13] MEDS: ASPIRIN 81 MG ECTAB PO SCH (08:59)
[2020-03-13] MEDS: IRON SUCROSE 200 MG in 0.9 % SODIUM CHLORIDE 100 ML IV SCH (08:59)
[2020-03-13] MEDS: ATORVASTATIN 20 MG TAB PO SCH (08:59)
[2020-03-13] MEDS: CEROVITE ADV FORMULA TAB PO SCH (08:59)
[2020-03-13] MEDS: amLODIPine BESYLATE 5 MG TAB PO SCH (08:59)
[2020-03-13] MEDS: INSULIN ASPART 100 UNITS/ML 3 ML PEN SC SCH ×4 (09:03→20:43)
--- NOTE | 2020-03-13 17:32 | Anesthesiology Progress Note ---
Date of Service March 13, 2020 Anesthesia Post Procedure Vital Signs Vital Signs: Temp Pulse Pulse Resp BP Pulse Ox 03/13/20 15:07 36.5 C 80 16 144/69 H 94 03/13/20 12:15 36.7 C 75 16 139/67 96 03/13/20 09:48 36.6 C 87 18 166/74 H 96 03/13/20 09:13 36.6 C 77 16 138/69 97 03/13/20 07:57 36.6 C 78 16 145/64 H 97 03/13/20 02:50 36.5 C 77 15 132/66 97 03/12/20 23:15 36.6 C 95 H 16 149/70 H 97 Pain Intensity Lower Back: Pain Intensity: 3 Transfer of Care Handoff Completed per policy Notes Mental Status: alert / awake / arousable and participated in evaluation Patient Amnestic to Procedure: Yes Nausea / Vomiting: adequately controlled Pain: adequately controlled Airway Patency, RR, SpO2: stable & adequate BP & HR: stable & adequate Hydration State: stable & adequate Anesthetic Complications: no major complications apparent and Pt Satisfied with anesthetic care
--- NOTE | 2020-03-13 18:34 | Hospitalist Progress Note ---
Date of Service March 13, 2020 Assessment & Plan (1) Neurogenic claudication due to lumbar spinal stenosis: S/p removal of instrumentation of L3-4 & L4-5, decompression of L1-2 and L2-3, and fusion of L2-[address] Cardoza on 03/12/2020. - Mild acute blood loss anemia - Will give IV iron x 3 doses. - Post-operative care per surgical team (2) HTN (hypertension): BP is 150/75 after surgery; now 145/70. - Continue amlodipine - Follow up with PCP (3) Diabetes 1.5, managed as type 2: A1c was 7.5% this month. - Hold metformin - Sliding scale insulin - Glycemic pharmacist consulted (4) Hypercholesterolemia: - Continue statin (5) History of asthma: No shortness of breath on exam at this time. - Continue montelukast - DuoNebs PRN (6) DVT prophylaxis: SCDs - Heparin per primary team Given medical stability, Hospital Medicine team will sign off. Please re-consult with any questions or concerns. Thank you for letting us assist in the care of this patient! Admission and Anticipated Discharge Date Admission Date: March 12, 2020 Subjective No major issues today. Back hurts, but very bearable. Reports no fevers/chills, chest pain, shortness of breath, abdominal pain, nausea, or vomiting. Physical Exam Constitutional: WD/WN, vitals as above Eyes: EOM intact bilaterally; no conjunctival abnormality ENMT: external ear and nose normal, oropharynx normal Neck: trachea midline, no thyromegaly normal visual inspection Respiratory: normal respiratory effort, lungs clear to auscultation no respiratory distress Cardiovascular: RRR, no murmur, no edema Gastrointestinal (Abdomen): Inspection/Auscultation: abdomen normal to inspection; abdomen not distended Musculoskeletal: no cyanosis or clubbing, extremities motor strength 5/5 Spine: + lumbar spinal tenderness (Bandage and drain present.) Skin: no rashes, warm and dry Neurologic: moves all extremities and awake Psychiatric: Orientation: alert, oriented to person and cooperative Results & Data Results & Data ([facility]) Vital Signs (Past 12 Hours) Vital Signs Temp Pulse Pulse Resp BP Pulse Ox 03/13/20 15:07 36.5 C 80 16 144/69 H 94 03/13/20 12:15 36.7 C 75 16 139/67 96 03/13/20 09:48 36.6 C 87 18 166/74 H 96 03/13/20 09:13 36.6 C 77 16 138/69 97 03/13/20 07:57 36.6 C 78 16 145/64 H 97 PG Care Time/CCT Total # of Minutes Spent Total Time Spent with Patient: Total time spent is greater than 50% in coordination of care (as documented) at patient's floor/unit and/or counseling patient: Coding Level of Care Code 74862 Subseq Hosp Care Lvl 2 Diagnoses Neurogenic claudication due to lumbar spinal stenosis M48.062 HTN (hypertension) I10 Diabetes 1.5, managed as type 2 E13.9 Hypercholesterolemia E78.00 History of asthma Z87.09 DVT prophylaxis Z29.9
[2020-03-13] MEDS: MONTELUKAST SODIUM 10 MG TABLET PO SCH (20:15)
[2020-03-13] MEDS: DOCUSATE SODIUM/SENNA 50/8.6MG TAB PO SCH (20:15)
[2020-03-14] MEDS: oxyCODONE HCL IR 5 MG TAB (IMMEDIATE RELEASE) PO PRN ×4 (05:48→21:40)
[2020-03-14] MEDS: POLYETHYLENE (MIRALAX) 17 GM PACK PO SCH ×4 (05:48→23:36)
[2020-03-14] MEDS: ACETAMINOPHEN 500 MG TAB PO PRN ×2 (08:08→23:33)
--- NOTE | 2020-03-14 08:19 | Orthopedic Progress Note ---
Date of Service March 14, 2020 Assessment & Plan (1) Neurogenic claudication due to lumbar spinal stenosis: Patient will continue with physical therapy today. Continue with pain control. DVT prophylaxis is in the form of teds and SCDs. Continue with aggressive bowel regimen. Maintain BAYRON drain. Anticipate discharge home tomorrow. Admission and Anticipated Discharge Date Admission Date: March 12, 2020 Supervising Physician Co-Signing Physician Notes Dr. Nicolás Cardoza Subjective Patient is postoperative day 2 multilevel lumbar decompression fusion. She is doing great. Has a bit more back pain today. Denies radicular leg pain. She is passing flatus but no bowel movement. BAYRON drain output last shift was 30 cc. Yesterday in physical therapy ambulating roughly 230 feet. No new complaints. Review of Systems Review of Systems: All systems reviewed & are unremarkable except as noted in HPI & below Physical Exam Physical Exam: She is standing and ambulating from the restroom to her bed with a walker. Alert and oriented x3. No acute distress. Lumbar dressing is clean dry and intact Strength is intact bilateral lower extremities and calves are soft and nontender bilaterally. Constitutional: WD/WN, vitals as above Eyes: normal visual mcneil by confrontation ENMT: external ear and nose normal, oropharynx normal Neck: normal visual inspection Respiratory: normal respiratory effort Cardiovascular: Extremities: normal capillary refill Chest (Breasts): Chest: normal inspection of chest Gastrointestinal (Abdomen): Inspection/Auscultation: abdomen normal to inspection Musculoskeletal: no cyanosis or clubbing, extremities motor strength 5/5 Extremities: extremities normal to inspection and strength 5/5 throughout Gait: normal gait Skin: no rashes, warm and dry Neurologic: normal touch/pain/proprioception and moves all extremities Psychiatric: A+Ox3, euthymic affect Results & Data ([facility]) Vital Signs (Past 12 Hours) Vital Signs Temp Pulse Pulse Resp BP Pulse Ox 03/14/20 08:03 36.9 C 92 H 16 149/69 H 93 03/13/20 23:39 36.9 C 77 14 146/74 H 95
[2020-03-14] MEDS: IRON SUCROSE 200 MG in 0.9 % SODIUM CHLORIDE 100 ML IV SCH (08:27)
[2020-03-14] MEDS: ATORVASTATIN 20 MG TAB PO SCH (08:34)
[2020-03-14] MEDS: MULTIVITAMIN TAB PO SCH (08:34)
[2020-03-14] MEDS: ASPIRIN 81 MG ECTAB PO SCH (08:34)
[2020-03-14] MEDS: amLODIPine BESYLATE 5 MG TAB PO SCH (08:35)
[2020-03-14] MEDS: CEROVITE ADV FORMULA TAB PO SCH (08:35)
[2020-03-14] MEDS: INSULIN ASPART 100 UNITS/ML 3 ML PEN SC SCH ×4 (08:55→21:06)
--- NOTE | 2020-03-14 09:45 | Pharmacy Report ---
Pharmacy Glycemic Short Note 2 - Date of Service March 14, 2020 - Glycemic Short BSG Results (Last 24 hours): 03/13/20 03/13/20 03/13/20 12:17 17:16 20:41 POC Glucose 111 H 166 H 135 H 03/14/20 08:09 POC Glucose 151 H OUTPATIENT ANTIDIABETIC REGIMEN: * METFORMIN 500 mg Po BID * A1c = 7.5% (02/27/20) ASSESSMENT: 03/14/20 * POD 2 * Blood sugars at goal, no changes needed in insulin regimen. 03/12/20 * Tova is a 74 yo female s/p spinal surgery * Pt is maintained on oral antidiabetic agents as an outpatient * Will hold oral agents for admission and utilize SQ basal bolus insulin regimen which is the recommended regimen for inpatient glycemic control. * A one time dose of NPH will be given to cover the effects of dexamethasone IV given in the OR * Novolog orders per weight stress/3 for POD #0 PLAN FOR INPATIENT GLYCEMIC CONTROL: * Hold outpatient oral diabetes medications * Bolus insulin * NovoLog per scale ACHS or Q6hrs while NPO * Goal Range: Low 110 mg/dL - High 140 mg/dL * Correction Factor: 25 mg/dL/unit * Nutritional / Prandial insulin per carb ratio of 1 unit per 9 grams CHO consumed PLAN FOR DISCHARGE: * A1c = 7.5% (02/27/20) * Recommend titration of metformin as tolerated to goal dose of 1000 mg PO BID * increase by 500 mg per week * administer with meals to avoid GI upset
[2020-03-14] MEDS: DOCUSATE SODIUM/SENNA 50/8.6MG TAB PO SCH (21:08)
[2020-03-14] MEDS: MONTELUKAST SODIUM 10 MG TABLET PO SCH (21:08)
[2020-03-15] MEDS: POLYETHYLENE (MIRALAX) 17 GM PACK PO SCH (05:20)
[2020-03-15] MEDS: oxyCODONE HCL IR 5 MG TAB (IMMEDIATE RELEASE) PO PRN ×2 (05:21→10:57)
[2020-03-15] MEDS: ACETAMINOPHEN 500 MG TAB PO PRN (07:35)
[2020-03-15] MEDS: INSULIN ASPART 100 UNITS/ML 3 ML PEN SC SCH (08:44)
[2020-03-15] MEDS: MULTIVITAMIN TAB PO SCH (08:47)
[2020-03-15] MEDS: ATORVASTATIN 20 MG TAB PO SCH (08:47)
[2020-03-15] MEDS: CEROVITE ADV FORMULA TAB PO SCH (08:47)
[2020-03-15] MEDS: IRON SUCROSE 200 MG in 0.9 % SODIUM CHLORIDE 100 ML IV SCH (08:48)
[2020-03-15] MEDS: ASPIRIN 81 MG ECTAB PO SCH (08:48)
[2020-03-15] MEDS: amLODIPine BESYLATE 5 MG TAB PO SCH (08:48)
--- NOTE | 2020-03-15 10:13 | Discharge Summary ---
Date of Service March 15, 2020 Admission HPI Per Admitting Provider This is a 74-year-old female who presents with chronic persistent back and leg pain after failing course of nonoperative care she is here for surgical intervention. Principal Diagnosis Lumbar spinal stenosis with neurogenic claudication Discharge Data Allergies Allergy/AdvReac Type Severity Reaction Status Date / Time hydrochlorothiazide Allergy Unknown Unknown Verified 03/12/20 07:43 colestipol AdvReac Intermediate "FELT Verified 03/12/20 11:31 AWFUL" lovastatin AdvReac Mild MUSCLE Verified 03/12/20 11:31 ACHES morphine AdvReac Mild mental Verified 03/12/20 11:31 confusion Consultations 03/12/20 13:36 Consult Case Management - Discharge Planning Routine Consult Hospitalist Routine Procedures Performed Operation Date: 03/12/20 09:05 Actual Procedures p L2-L3 Decompression with Insertion of Interbody, L2-L5 Fusion, Spinal Cord Monitoring(Not Applicable) - Nicolás Cardoza DO s L3-L5 Hardware Removal(Not Applicable) - Nicolás Cardoza DO Ordered Studies 03/12/20 07:45 FL fluoroscopy <1hr Routine FL lumbar spine 2-3V Routine Hospital Course (1) Neurogenic claudication due to lumbar spinal stenosis: Patient underwent lumbar decompression fusion tolerated this well was taken to the orthopedic floor possibly. Postop day 1 she was up and ambulating progressed to postop day #2 on postop day #3 she had X strength testing BAYRON drain decreasing appropriately. Pain well controlled. Subsequently discharged home. Discharge orders and instructions found in chart for further review. Total Time Total Time Spent Total Time Spent (In Minutes): 20 minutes Discharge Plan Discharge Items Patient Disposition: Home - Self-Care Reason For Visit: Spinal Stenosis, Lumbar Region with Neurogenic Discharge Diagnosis: Lumbar spinal stenosis with neurogenic claudication Activity: As commented below Non-emergency contact: Primary Care Provider Call non-emergency contact if: you have any medication questions Follow-up/Referrals: Gordon Sellers MD [Primary Care Provider] - Diet: Regular Addtl Attending Provider Instructions: ACTIVITY RECOMMENDATIONS: SELF CARE INSTRUCTIONS AFTER CERVICAL FUSIONS 1. No smoking. Smoking drastically decreases the chance of a solid fusion. 2. No bending, lifting more than 5 pounds, or twisting (roll like a log when turning in bed). 3. You may shower 3 days after surgery. Thoroughly dry wound. Do not soak in the tub. 4. Cervical collar: Must be worn at all times including sleeping. You may remove the brace only to bath, eat and if you are sitting in a recliner. 5. Please walk as much as you can for exercise. Gradually increase the distance that you walk as your endurance increases. SPECIAL CARE INSTRUCTIONS: VERY IMPORTANT TO READ AND REVIEW A. Do not take any anti-inflammatory medications (i.e. Indocin, Advil, Aspirin, Naprosyn, Aleve, Motrin, etc.) as these may inhibit the chance of a solid fusion. Tylenol is okay to take. B. Your surgical incision has been closed with a cosmetic suture under the skin that will dissolve in about 6 weeks. In 14 days, you can use a pair of clean scissors and cut the suture that is left outside of the skin at the ends of your incision. C. Complications are uncommon, but please contact us if you have any signs or symptoms of: 1. wound infection (fever higher than 102.5 degrees F, redness, separation of wound, drainage, or increasing pain from the incision) 2. blood clots in legs (pain, swelling, redness and warmth in legs) 3. urinary tract infection (fever higher than 102.5 degrees, burning upon urination or increased frequency of urination) 4. nerve problems (inability to walk on your toes or heels, numbness, loss of bowel or bladder control) 5. any other symptoms that concern you. D. Please call the office at if you have any concerns or questions about your operation or recovery. MANAGING PAIN AFTER SPINAL SURGERY 1. Narcotic medication is intended for short-term use and will be provided for surgical pain. Surgical pain usually lasts for a period of 4-6 weeks. Narcotic medication includes Percocet, Vicodin, Darvocet, Tylenol #3 or Lortab. 2. Longer-term pain is more appropriately treated with non-narcotic medication such as Tylenol ES. 3. Muscle spasm is not appropriately treated with narcotics. Muscle relaxers such as Soma, Flexeril or Skelaxin can be used along with Tylenol ES. 4. Remember that we all live with some "aches and pains". This is not unusual or uncommon after an injury or as we get older. 5. We will provide appropriate medication within the normal guidelines of their prescribed use. We will also be very cautious and aware of potential abuse and extended duration of patients' medication needs. 6. Please allow 2-3 days to process refills. Prescriptions will not be mailed but must be picked up at the office. FOLLOW UP VISIT: Keep your scheduled follow-up appointment. Any questions, please call the office at . Pending Studies at Discharge: No Stand-Alone Forms: My [facility], Smoking Cessation Medications and DC Order Prescriptions: New tramadol 50 mg tablet 50 mg PO Q6H PRN (Reason: pain, moderate) Qty: 20 RF: 0 oxycodone 5 mg tablet 5 mg PO Q6H PRN (Reason: pain, severe) Qty: 20 RF: 0 Continued montelukast 10 mg tablet 10 mg PO QPM Qty: 90 RF: 3 metformin 500 mg tablet 500 mg PO BID Qty: 180 RF: 3 tramadol 50 mg tablet 50 mg PO QID PRN (Reason: pain) Qty: 120 RF: 2 (DME) OneTouch Ultra Blue Test Strip strip See Dose Instructions .ROUTE .MEDSUPPLY Qty: 10 RF: 0 (DME) lancets [OneTouch UltraSoft Lancets] misc See Dose Instructions .ROUTE .MEDSUPPLY Qty: 50 RF: 0 albuterol sulfate [Ventolin HFA] 90 mcg/actuation HFA aerosol inhaler 2 puffs INH Q4H PRN (Reason: shortness of breath or wheezing) Qty: 18 RF: 5 ibandronate 150 mg tablet 150 mg PO .COMPLEX Qty: 1 RF: 11 multivitamin tablet 1 tab PO QAM RF: 0 atorvastatin 20 mg tablet 20 mg PO QAM RF: 0 aspirin [Adult Low Dose Aspirin] 81 mg tablet,delayed release (DR/EC) 81 mg PO QAM RF: 0 amlodipine [Norvasc] 10 mg tablet 10 mg PO QAM RF: 0 fluticasone propionate [Flonase Allergy Relief] 50 mcg/actuation spray,suspension 2 sprays INTNAS DAILY PRN (Reason: Allergy Symptoms) RF: 0 PreserVision AREDS [id number] Tablet 1 tab PO QAM RF: 0 acetaminophen [Tylenol] 325 mg Capsule 650 mg PO QID PRN (Reason: Pain) RF: 0 Discharge Orders: Discharge Order (Routine); Ordered 03/15/20 Ordered By: Nicolás Clarke/Other Patient Handouts: Managing Type 2 Diabetes Admission Data Admit Date/Time: 03/12/20 12:26 Attending Provider: Nicolás Cardoza Admit Provider: Nicolás Cardoza Primary Care Provider: Gordon Sellers Other Providers: Edinson Torres
== END 2020-03-15 11:46 | disposition home or self-care (01) | DRG 455 ==
LOC: ASU 07:09 → 3E 12:26

== ENCOUNTER 2020-04-28 08:54 | Inpatient (IN) ==
--- NOTE | 2020-04-28 09:31 | Emergency Department Note ---
Impression & Plan Intractable back pain, Compression fracture of L4 vertebra, History of spinal surgery ED Provider Note NAME: YAN JAMISON AGE: 74 SEX: F ARRIVES VIA: Walk-In INFORMANT: Patient, ED PROVIDER(S): Alexis Bello MD CHIEF COMPLAINT: Back pain. PLAN: Disposition: Admit MEDICAL DECISION MAKING: The patient is a pleasant 74 y/o woman with a pmhx of HTN, HLD, NIDDM2, s/p post lumbar decompression fusion L2-L3. who presents to the emergency department with worsening back pain in the setting of seeing her spine surgeon, Dr. Cardoza, yesterday with concern for new L4 compression fracture and was referred to ED for evaluation and plan for admission and surgery. The patient denies urinary retention or bowel incontinence. She denies fevers, chills, cough, congestion, n/v/d, urinary sx, cp, sob. She denies known Covid19 exposures. On arrival the patient is uncomfortable but in NAD, AFVSS. On exam she exhibits mild tenderness of lumbar spine within step offs. Case was discussed with Dr. Cardoza, the patient's spine surgeon who confirms concern from patient's fracture and plan for admission surgery. Basic blood ordered as was unremarkable. WBC, H/H and wnl. Platelets 400s, nonspecific. Chemistry without acidosis. Magnesium 1.6 and potassium 3.3. and otherwise, LFTs and electrolytes unremarkable. UA with epithelial cells. Patient admitted to OR with Dr. Cardoza. Patient agrees with plan. Triage Nursing notes reviewed and agree them. Prior medical records reviewed Vital Signs: reviewed and remarkable for no significant abnormalities Differential diagnosis: Musculoskeletal, disc herniation, fracture, metastatic disease, cord compression, discitis, sciatica, cauda equina, infection, aortic disease, renal colic, gastrointestinal, as well as other pathologies. ER treatment provided: See below. Diagnostics interpreted by me: ECG: NSR, 83 bpm, no ectopy, no overt ST elevation or depression. Cardiac Monitoring: An order for continuous cardiac monitoring was placed and demonstrated NSR, 83 bpm, no ectopy. Laboratory studies: See below Consultation(s): Dr. Cardoza, orthopedic surgery. HPI: The patient is a pleasant 74 y/o woman with a pmhx of HTN, HLD, NIDDM2, s/p post lumbar decompression fusion L2-L3. who presents to the emergency department with worsening back pain in the setting of seeing her spine surgeon, Dr. Cardoza, yesterday with concern for new L4 compression fracture and was referred to ED for evaluation and plan for admission and surgery. The patient denies urinary retention or bowel incontinence. She denies fevers, chills, cough, congestion, n/v/d, urinary sx, cp, sob. She denies known Covid19 exposures. ROS: See above HPI for pertinent positives & negatives. A total of 10 systems reviewed and were otherwise negative. PAST MEDICAL HISTORY:See Below PAST SURGICAL HISTORY:See Below FAMILY HISTORY:See Below SOCIAL HISTORY:See Below HOME MEDICATIONS:See Below ALLERGIES:See Below VITALS:See Below PHYSICAL EXAMINATION: GENERAL: Awake, alert, uncomfortable-appearing, in no distress HENT: Normocephalic, atraumatic. Oropharynx with dry mucous membranes and otherwise unremarkable. EYES: Normal conjunctiva. Sclera non-icteric. NECK: Supple. No nuchal rigidity. FROM. No JVD. RESPIRATORY: Clear to auscultation. CARDIAC: Regular rate, normal rhythm. Extremities warm and well perfused. Pulses equal. ABDOMEN: Soft, non-distended. No tenderness to palpation. No rebound or guarding. No masses. RECTAL: Deferred. MUSCULOSKELETAL: Chest examination reveals no tenderness. The back is symmetrical on inspection without obvious abnormality. Mild tenderness of lumbar spine within step offs. There is no CVA tenderness to palpation. No joint edema. LOWER EXTREMITIES: Calves are equal size bilaterally and non-tender. No edema. No discoloration. NEURO: Normal sensorium. No sensory or motor deficits noted. 5/5 strength and SILT x 4 extremities. DTRs wnl. No clonus. SKIN: No rash or jaundice noted. Aelxis Bello MD Past Med/Surg History Medical History Diabetes 1.5, managed as type 2 History of asthma Using albuterol inhaler almost every morning, sometimes in evenings depending on season. HTN (hypertension) Hypercholesterolemia Myofascial pain Osteoporosis Pain of left breast Chronic. Has had mammograms, been seen by breast care center in [place], no etiology. Poor historian Sacroiliitis Surgical History H/O hysterectomy for benign disease History of bladder surgery History of cardiac cath NO STENTS NEEDED-MANY YRS AGO History of cataract surgery R/L History of colonoscopy History of lumbar spinal fusion Hx of appendectomy Hx of breast reduction, elective Hx of tubal ligation S/P lumbar fusion 03/12/20. GETA. MAC 3. 7.0 ETT (difficulty placing 7.5). Family History Unknown No pertinent family history Social History Smoking Status: Never smoker Second Hand Exposure: Yes (FATHER SMOKED); Do You Dip or Chew Tobacco: No; Hx Alcohol Use: Yes Alcohol type: wine Hx Substance Use: No Preferred Language: Albanian Communication Ability: Effective Visual Impairment: No Limitations Hearing Ability: Normal Part Time Flexible Clerk Required: No Beliefs That Will Affect Care: None marital status: Current Living Situation: Spouse current occupational status: retired Other Information That Helps Us Care for You: No Feels Safe at Home: Yes Safety Concerns: Feels Safe At This Time Assistive Devices: Walker Allergies Allergies Allergy/AdvReac Type Severity Reaction Status Date / Time hydrochlorothiazide Allergy Unknown Unknown Verified 04/28/20 09:59 colestipol AdvReac Intermediate "FELT Verified 04/28/20 09:59 AWFUL" lovastatin AdvReac Mild MUSCLE Verified 04/28/20 09:59 ACHES morphine AdvReac Mild mental Verified 04/28/20 09:59 confusion Home Meds Home Medications Medication Instructions Recorded Confirmed blood sugar diagnostic #10 ea 03/03/19 03/08/20 lancets #50 ea 03/03/19 03/08/20 PreserVision AREDS 1 tab PO QAM 02/19/20 04/28/20 acetaminophen [Tylenol] 650 mg PO QID PRN 02/19/20 04/28/20 amlodipine [Norvasc] 10 mg PO QAM 02/19/20 04/28/20 aspirin [Adult Low Dose Aspirin] 81 mg PO QAM 02/19/20 04/28/20 atorvastatin 20 mg PO QAM 02/19/20 04/28/20 fluticasone propionate [Flonase 2 sprays INTNAS DAILY PRN 02/19/20 04/28/20 Allergy Relief] multivitamin 1 tab PO QAM 02/19/20 04/28/20 Previous Rx's Medication Instructions Recorded montelukast 10 mg tablet 10 mg PO QPM #90 tab 07/01/19 albuterol sulfate 90 mcg/actuation 2 puffs INH Q4H PRN #18 gm 10/27/19 aerosol inhaler metformin 500 mg tablet 500 mg PO BID #180 tab 10/28/19 tramadol 50 mg tablet 50 mg PO QID PRN #120 tab 01/12/20 Results & Data (ED) Vital Signs Vital Signs - 24 hr 04/28/20 09:01 04/28/20 10:13 04/28/20 10:14 Temperature 36.7 C Temperature Source Oral Pulse Rate 104 H 92 H Pulse Rate [Apical] Pulse Rate from SpO2 Sensor 92 H Pulse Rhythm [Apical] Respiratory Rate 16 14 Respiratory Effort / Characteristics Respiratory Depth Respiratory Pattern Blood Pressure 168/75 H 150/77 H Blood Pressure [Left Arm] Blood Pressure Mean 106 100 Blood Pressure Mean [Left Arm] Blood Pressure Position [Left Arm] Pulse Oximetry 98 96 95 Oxygen Delivery Method Room Air Room Air Room Air Oxygen Flow Rate Sepsis Recent Fever Within 48 Hours No Sepsis New/Unexplained Change in Mental Status N/A Sepsis Action Taken by Nursing No Action Required 04/28/20 10:30 04/28/20 11:00 04/28/20 11:30 Temperature Temperature Source Pulse Rate 85 81 80 Pulse Rate [Apical] Pulse Rate from SpO2 Sensor 85 80 81 Pulse Rhythm [Apical] Respiratory Rate 12 14 15 Respiratory Effort / Characteristics Respiratory Depth Respiratory Pattern Blood Pressure 145/70 H 148/68 H 157/75 H Blood Pressure [Left Arm] Blood Pressure Mean 100 104 116 Blood Pressure Mean [Left Arm] Blood Pressure Position [Left Arm] Pulse Oximetry 97 97 97 Oxygen Delivery Method Room Air Room Air Room Air Oxygen Flow Rate Sepsis Recent Fever Within 48 Hours Sepsis New/Unexplained Change in Mental Status Sepsis Action Taken by Nursing 04/28/20 12:00 04/28/20 15:04 04/28/20 15:10 Temperature 36.3 C L Temperature Source Temporal Artery Scan Temporal Artery Scan Pulse Rate 85 Pulse Rate [Apical] 80 88 Pulse Rate from SpO2 Sensor 85 Pulse Rhythm [Apical] Regular Regular Respiratory Rate 17 10 L 13 Respiratory Effort / Characteristics Non-Labored Spontaneous Non-Labored Spontaneous Respiratory Depth Normal Normal Respiratory Pattern Regular Regular Blood Pressure 145/66 H Blood Pressure [Left Arm] 152/71 H 150/82 H Blood Pressure Mean 96 Blood Pressure Mean [Left Arm] 98 104 Blood Pressure Position [Left Arm] Semi-fowlers Semi-fowlers Pulse Oximetry 97 100 100 Oxygen Delivery Method Room Air Oxymask Oxymask Oxygen Flow Rate 5 5 Sepsis Recent Fever Within 48 Hours Sepsis New/Unexplained Change in Mental Status Sepsis Action Taken by Nursing 04/28/20 15:20 04/28/20 15:30 04/28/20 15:40 Temperature 36.6 C Temperature Source Temporal Artery Scan Temporal Artery Scan Temporal Artery Scan Pulse Rate Pulse Rate [Apical] 89 96 H 93 H Pulse Rate from SpO2 Sensor Pulse Rhythm [Apical] Regular Regular Regular Respiratory Rate 11 L 15 12 Respiratory Effort / Characteristics Non-Labored Spontaneous Non-Labored Spontaneous Non-Labored Spontaneous Respiratory Depth Normal Normal Normal Respiratory Pattern Regular Regular Regular Blood Pressure Blood Pressure [Left Arm] 150/78 H 147/80 H 162/80 H Blood Pressure Mean Blood Pressure Mean [Left Arm] 102 102 107 Blood Pressure Position [Left Arm] Semi-fowlers Semi-fowlers Semi-fowlers Pulse Oximetry 100 98 98 Oxygen Delivery Method Oxymask Oxymask Nasal Cannula Oxygen Flow Rate 3 2 2 Sepsis Recent Fever Within 48 Hours Sepsis New/Unexplained Change in Mental Status Sepsis Action Taken by Nursing Laboratory Data Attestation: I reviewed the patient's lab results. Result diagrams: 04/28/20 10:02 04/28/20 10:02 Lab Results 04/28/20 04/28/20 04/28/20 Range/Units 10:02 10:02 11:26 WBC 10.15 (4.8-10.8) K/uL RBC 4.03 L (4.2-5.4) M/uL Hgb 13.3 (12.0-16.0) g/dL Hct 39.7 (37-47) % MCV 98.5 (80-100) fL MCH 33.0 (25-34) pg MCHC 33.5 (32-36) g/dL RDW Std Deviation 45.5 (36.4-46.3) fL RDW Coeff of Dillon 12.6 (11.5-14.5) % Plt Count 420 H (130-400) K/uL MPV 9.2 (7.4-10.4) fL Immature Gran % (Auto) 0.4 % Neut % (Auto) 69.2 % Lymph % (Auto) 19.5 % Mower % (Auto) 9.2 % Eos % (Auto) 1.3 % Baso % (Auto) 0.4 % Neut # (Auto) 7.03 H (1.4-6.5) K/uL Lymph # (Auto) 1.98 (1.2-3.4) K/uL Mower # (Auto) 0.93 H (0.11-0.59) K/uL Eos # (Auto) 0.13 (0-0.5) K/uL Baso # (Auto) 0.04 (0-0.2) K/uL Immature Gran # (Auto) 0.04 H (0.00-0.02) K/uL Sodium 138 (136-145) mmol/L Potassium 3.3 L (3.5-5.1) mmol/L Chloride 102 (98-107) mmol/L Carbon Dioxide 29 (21-32) mmol/L Anion Gap 7.0 (3-11) BUN 21 H (7-18) mg/dl Creatinine 0.58 L (0.6-1.2) mg/dl Est Cr Clr Drug Dosing 67.3 ml/min Est GFR ( Amer) 105.2 Est GFR (Non-Af Amer) 90.8 BUN/Creatinine Ratio 37.0 H (10-20) Glucose 172 H (70-99) mg/dl POC Glucose (70-99) mg/dl Calcium 9.6 (8.5-10.1) mg/dl Phosphorus 2.8 (2.5-4.9) mg/dl Magnesium 1.6 L (1.8-2.4) mg/dl Total Bilirubin 0.4 (0.2-1) mg/dl AST 20 (15-37) U/L ALT 22 (12-78) U/L Alkaline Phosphatase 208 H (45-117) U/L Total Protein 6.8 (6.4-8.2) gm/dl Albumin 3.5 (3.4-5.0) gm/dl Globulin 3.3 (2.5-4.0) gm/dl Albumin/Globulin Ratio 1.1 (0.9-2) Lipase 147 (73-393) U/L Urine Color Urine Appearance (Clear) Urine pH (4.5-7.5) Ur Specific Ward (1.000-1.030) Urine Protein (Negative) Urine Glucose (UA) (Negative) Urine Ketones (Negative) Urine Blood (Negative) Urine Nitrite (Negative) Urine Bilirubin (Negative) Urine Urobilinogen (Negative) Ur Leukocyte Esterase (Negative) Urine WBC (Auto) (0-5) /hpf Urine RBC (Auto) (0-4) /hpf U Hyaline Cast (Auto) (0-5) /lpf U Epithel Cells (Auto) (0-5) /lpf Urine Bacteria (Auto) (Negative) SARS-CoV-2 Ag (Rapid) Negative (Negative) 04/28/20 04/28/20 Range/Units 11:56 15:05 WBC (4.8-10.8) K/uL RBC (4.2-5.4) M/uL Hgb (12.0-16.0) g/dL Hct (37-47) % MCV (80-100) fL MCH (25-34) pg MCHC (32-36) g/dL RDW Std Deviation (36.4-46.3) fL RDW Coeff of Dillon (11.5-14.5) % Plt Count (130-400) K/uL MPV (7.4-10.4) fL Immature Gran % (Auto) % Neut % (Auto) % Lymph % (Auto) % Mower % (Auto) % Eos % (Auto) % Baso % (Auto) % Neut # (Auto) (1.4-6.5) K/uL Lymph # (Auto) (1.2-3.4) K/uL Mower # (Auto) (0.11-0.59) K/uL Eos # (Auto) (0-0.5) K/uL Baso # (Auto) (0-0.2) K/uL Immature Gran # (Auto) (0.00-0.02) K/uL Sodium (136-145) mmol/L Potassium (3.5-5.1) mmol/L Chloride (98-107) mmol/L Carbon Dioxide (21-32) mmol/L Anion Gap (3-11) BUN (7-18) mg/dl Creatinine (0.6-1.2) mg/dl Est Cr Clr Drug Dosing ml/min Est GFR ( Amer) Est GFR (Non-Af Amer) BUN/Creatinine Ratio (10-20) Glucose (70-99) mg/dl POC Glucose 190 H (70-99) mg/dl Calcium (8.5-10.1) mg/dl Phosphorus (2.5-4.9) mg/dl Magnesium (1.8-2.4) mg/dl Total Bilirubin (0.2-1) mg/dl AST (15-37) U/L ALT (12-78) U/L Alkaline Phosphatase (45-117) U/L Total Protein (6.4-8.2) gm/dl Albumin (3.4-5.0) gm/dl Globulin (2.5-4.0) gm/dl Albumin/Globulin Ratio (0.9-2) Lipase (73-393) U/L Urine Color Yellow Urine Appearance Clear (Clear) Urine pH 6.0 (4.5-7.5) Ur Specific Ward 1.017 (1.000-1.030) Urine Protein Negative (Negative) Urine Glucose (UA) Negative (Negative) Urine Ketones Trace H (Negative) Urine Blood Negative (Negative) Urine Nitrite Negative (Negative) Urine Bilirubin Negative (Negative) Urine Urobilinogen Negative (Negative) Ur Leukocyte Esterase 1+ H (Negative) Urine WBC (Auto) 5-10 H (0-5) /hpf Urine RBC (Auto) 0-4 (0-4) /hpf U Hyaline Cast (Auto) 1-5 (0-5) /lpf U Epithel Cells (Auto) 20-30 H (0-5) /lpf Urine Bacteria (Auto) Negative (Negative) SARS-CoV-2 Ag (Rapid) (Negative) Administered Medications Sodium Chloride (Nss 1000ml) 1,000 mls @ 100 mls/hr IV .Q10H BRUNA Stop: 05/28/20 16:26 Last Admin: 04/28/20 17:10 Dose: 100 mls/hr Documented by: [id number] Acetaminophen (Ofirmev) 1,000 mg in 100 mls @ 400 mls/hr IV Q8H PRN PRN Reason: MILD Pain Rating 1,2,3 Stop: 04/29/20 16:26 Last Infusion: 04/28/20 23:05 Dose: 0 mls/hr Documented by: [id number] Admin: 04/28/20 20:18 Dose: 400 mls/hr Documented by: [id number] Cefazolin Sodium (Ancef 1000mg) 1,000 mg in 7.5 mls @ 150 mls/hr IV Q8H [facility]; Protocol Stop: 04/29/20 06:02 Last Admin: 04/28/20 21:45 Dose: 150 mls/hr Documented by: [id number] Insulin Aspart (Insulin Aspart 100 Units/Ml 3 Ml Pen) 0 units SC ACHS [facility] Stop: 05/28/20 17:59 Last Admin: 04/28/20 21:46 Dose: 7 units Documented by: [id number] Cosigned by: [id number] Admin: 04/28/20 18:22 Dose: 10 units Documented by: [id number] Cosigned by: [id number] Montelukast Sodium (Montelukast Sodium 10 Mg Tablet) 10 mg PO QPM [facility] Stop: 05/28/20 20:59 Last Admin: 04/28/20 21:40 Dose: 10 mg Documented by: [id number] Senna/Docusate Sodium (Docusate Sodium/Senna 50/8.6mg Tab) 2 tab PO HS [facility] Stop: 05/28/20 20:59 Last Admin: 04/28/20 21:40 Dose: 2 tab Documented by: [id number] Tramadol HCl (Tramadol Hcl 50 Mg Tablet) 50 mg PO Q4H PRN PRN Reason: Pain Stop: 04/28/20 23:59 Last Admin: 04/28/20 21:43 Dose: 50 mg Documented by: [id number] Discontinued Medications Bacitracin (Bacitracin Inj 50,000 Unit Vial) Confirm Administered Dose 50,000 units .ROUTE .STK-MED ONE Stop: 04/28/20 13:10 Last Admin: 04/28/20 14:20 Dose: 50,000 units Documented by: [id number] Bupivacaine HCl/Epinephrine Bitart (Bupivacaine/Epinephrine 0.5% Mpf 1:200,000 30 Ml Vial) Confirm Administered Dose 30 ml .ROUTE .STK-MED ONE Stop: 04/28/20 13:09 Last Admin: 04/28/20 14:20 Dose: 30 ml Documented by: [id number] Cefazolin Sodium (Cefazolin 1,000 Mg/7.5 Ml Iv Push) Confirm Administered Dose 1,000 mg IV .STK-MED ONE Stop: 04/28/20 13:06 Last Admin: 04/28/20 13:27 Dose: 1,000 mg Documented by: [id number] Dexamethasone (Dexamethasone Sod Inj 10 Mg/Ml Vial) 10 mg IV NOW ONE Stop: 04/28/20 09:58 Last Admin: 04/28/20 10:23 Dose: 10 mg Documented by: [id number] Fentanyl Citrate (Fentanyl Citrate 100 Mcg/2 Ml Vial) 25 mcg IV Q5M PRN PRN Reason: PACU Use Only-Pain Stop: 05/12/20 13:19 Last Admin: 04/28/20 15:16 Dose: 25 mcg Documented by: [id number] Admin: 04/28/20 15:11 Dose: 25 mcg Documented by: [id number] Gentamicin Sulfate (Gentamicin Sulfate 40 Mg/Ml 2 Ml Vial) Confirm Administered Dose 240 mg .ROUTE .STK-MED ONE Stop: 04/28/20 14:03 Last Admin: 04/28/20 14:21 Dose: 240 mg Documented by: [id number] Hydromorphone HCl (Hydromorphone Inj 1 Mg/Ml Syringe) 0.25 mg IV Q5M PRN PRN Reason: PACU Use Only-Pain Stop: 05/12/20 13:19 Last Admin: 04/28/20 15:35 Dose: 0.25 mg Documented by: [id number] Admin: 04/28/20 15:30 Dose: 0.25 mg Documented by: [id number] Sodium Chloride (Nss) 500 mls @ 999 mls/hr IV .Q31M ONE Stop: 04/28/20 10:27 Last Infusion: 04/28/20 11:07 Dose: 0 mls/hr Documented by: [id number] Admin: 04/28/20 10:23 Dose: 999 mls/hr Documented by: [id number] Acetaminophen (Ofirmev) 1,000 mg in 100 mls @ 400 mls/hr IV NOW STA Stop: 04/28/20 10:11 Last Infusion: 04/28/20 11:06 Dose: 0 mls/hr Documented by: [id number] Admin: 04/28/20 10:23 Dose: 400 mls/hr Documented by: [id number] Lactated Ringer's (Lr) 1,000 mls @ 75 mls/hr IV .[id number] BRUNA Stop: 05/28/20 16:26 Last Admin: 04/28/20 23:06 Dose: Not Given Documented by: [id number] Insulin Glargine (Insulin Glargine Solostar 100 Units/Ml 3 Ml Pen) 26 units SC NOW ONE Stop: 04/28/20 18:01 Last Admin: 04/28/20 18:23 Dose: 26 units Documented by: [id number] Cosigned by: [id number] Iopamidol (Iopamidol Inj 61% 15 Ml Vial) Confirm Administered Dose 15 ml .ROUTE .STK-MED ONE Stop: 04/28/20 13:41 Last Admin: 04/28/20 14:21 Dose: 15 ml Documented by: [id number] Iopamidol (Iopamidol Inj 61% 15 Ml Vial) Confirm Administered Dose 15 ml .ROUTE .STK-MED ONE Stop: 04/28/20 14:03 Last Admin: 04/28/20 17:30 Dose: Not Given Documented by: [id number] Morphine Sulfate (Morphine Sulfate 2 Mg/Ml Carp) 1 mg IV NOW STA Stop: 04/28/20 10:34 Last Admin: 04/28/20 11:23 Dose: 1 mg Documented by: [id number] Vancomycin HCl (Vancomycin Hcl 1000mg/20ml Vial) Confirm Administered Dose 50 mg .ROUTE .STK-MED ONE Stop: 04/28/20 14:03 Last Admin: 04/28/20 14:22 Dose: 50 mg Documented by: [id number] Discharge Plan Visit Data Chief Complaint: Back Injury/Pain Stated Complaint: SEVERE BACK PAIN, FX IN LOWER BACK ED Provider: Alexis Bello Discharge Problem: Intractable back pain, Compression fracture of L4 vertebra, History of spinal surgery Discharge Instructions Interventions: ED Discharge Assessment Last Done: 04/28/20 12:20 Discharge Problem: Compression fracture of L4 vertebra Qualifiers: Encounter type: initial encounter Qualified Code(s): S32.040A - Wedge compression fracture of fourth lumbar vertebra, initial encounter for closed fracture
[2020-04-28] MEDS ORDERED: DEXAMETHASONE SOD INJ 10 MG/ML VIAL IV ONE (09:57)
[2020-04-28] MEDS ORDERED: ACETAMINOPHEN 1,000 MG/100 ML VIAL IV STA (09:57)
[2020-04-28] MEDS ORDERED: SODIUM CHLORIDE 0.9% 500 ML IV ONE (09:57)
[2020-04-28] MEDS ORDERED: MoRPHine SULFATE 2 MG/ML CARP IV STA (10:33)
[2020-04-28 10:36] LABS: Basophils # (auto) 0.04 K/uL (0-0.2); Basophils % (auto) 0.4 %; Eosinophils # (auto) 0.13 K/uL (0-0.5); Eosinophils % (auto) 1.3 %; Hematocrit (blood only) 39.7 % (37-47); Hemoglobin 13.3 g/dL (12.0-16.0); Immature Granulocytes # (auto) 0.04 K/uL (0.00-0.02); Immature Granulocytes % (auto) 0.4 %; Lymphocytes # (auto) 1.98 K/uL (1.2-3.4); Lymphocytes % (auto) 19.5 %; Mean Corpuscular Hgb Conc 33.5 g/dL (32-36); Mean Corpuscular Volume 98.5 fL (80-100); Mean Platelet Volume 9.2 fL (7.4-10.4); Monocytes # (auto) 0.93 K/uL (0.11-0.59); Monocytes % (auto) 9.2 %; Neutrophils # (auto) 7.03 K/uL (1.4-6.5); Neutrophils % (auto) 69.2 %; Platelet Count 420 K/uL (130-400); RDW Coefficient of Variation 12.6 % (11.5-14.5); RDW Standard Deviation 45.5 fL (36.4-46.3); Red Blood Count 4.03 M/uL (4.2-5.4); White Blood Count 10.15 K/uL (4.8-10.8)
[2020-04-28 10:51] LABS: Albumin Level 3.5 gm/dl (3.4-5.0); Calcium 9.6 mg/dl (8.5-10.1); Creatinine Clr Calc Pharmacy 67.3 ml/min; Est GFR (African American) 105.2; Est GFR (Non-African American) 90.8; Magnesium 1.6 mg/dl (1.8-2.4); Potassium 3.3 mmol/L (3.5-5.1)
[2020-04-28 10:54] LABS: Albumin Globulin Ratio 1.1 (0.9-2); Bilirubin,Total 0.4 mg/dl (0.2-1); Globulin 3.3 gm/dl (2.5-4.0); Phosphorus 2.8 mg/dl (2.5-4.9); Total Protein 6.8 gm/dl (6.4-8.2)
--- NOTE | 2020-04-28 11:04 | History & Physical Report ---
Date of Service April 28, 2020 Assessment & Plan (1) Lumbar compression fracture: Admission and Anticipated Discharge Date Admission Date: At this time the patient remain n.p.o. we will plan for reimplantation of instrumentation L2-L5 with kyphoplasty of L4. Risk-benefit pros cons alternatives were outlined in detail. History of Present Illness Chief Complaint: Severe back and leg pain Primary Care Provider: Gordon Sellers MD This is a 74-year-old female well-known to me that status post lumbar decompression fusion L2-L3. Unfortunately her postoperative course was presented with advanced collapse of the L4 vertebral body consistent with a compression fracture. She was seen yesterday and imaging in the office demonstrated further collapse of the superior endplate beyond 50%. MRI confirmed the acuity. She is marked pain and presents the emergency room this morning with worsening symptoms. Subsequently she will be admitted for stabilization. Allergies Allergy/AdvReac Type Severity Reaction Status Date / Time hydrochlorothiazide Allergy Unknown Unknown Verified 04/28/20 09:59 colestipol AdvReac Intermediate "FELT Verified 04/28/20 09:59 AWFUL" lovastatin AdvReac Mild MUSCLE Verified 04/28/20 09:59 ACHES morphine AdvReac Mild mental Verified 04/28/20 09:59 confusion Home Medications Medication Instructions Recorded Confirmed Type blood sugar diagnostic #10 ea 03/03/19 03/08/20 History lancets #50 ea 03/03/19 03/08/20 History montelukast 10 mg tablet 10 mg PO QPM #90 tab 07/01/19 04/28/20 Rx albuterol sulfate 90 mcg/actuation 2 puffs INH Q4H PRN #18 gm 10/27/19 04/28/20 Rx aerosol inhaler metformin 500 mg tablet 500 mg PO BID #180 tab 10/28/19 04/28/20 Rx tramadol 50 mg tablet 50 mg PO QID PRN #120 tab 01/12/20 04/28/20 Rx PreserVision AREDS 1 tab PO QAM 02/19/20 04/28/20 History acetaminophen [Tylenol] 650 mg PO QID PRN 02/19/20 04/28/20 History amlodipine [Norvasc] 10 mg PO QAM 02/19/20 04/28/20 History aspirin [Adult Low Dose Aspirin] 81 mg PO QAM 02/19/20 04/28/20 History atorvastatin 20 mg PO QAM 02/19/20 04/28/20 History fluticasone propionate [Flonase 2 sprays INTNAS DAILY PRN 02/19/20 04/28/20 History Allergy Relief] multivitamin 1 tab PO QAM 02/19/20 04/28/20 History Past Med/Surg History Medical History (Updated 04/28/20 @ 11:03 by Nicolás Cardoza, DO) Diabetes 1.5, managed as type 2 History of asthma Using albuterol inhaler almost every morning, sometimes in evenings depending on season. HTN (hypertension) Hypercholesterolemia Myofascial pain Osteoporosis Pain of left breast Chronic. Has had mammograms, been seen by breast care center in [place], no etiology. Poor historian Sacroiliitis Surgical History (Updated 03/17/20 @ 10:02 by Sonal Armsa RN) H/O hysterectomy for benign disease History of bladder surgery History of cardiac cath NO STENTS NEEDED-MANY YRS AGO History of cataract surgery R/L History of colonoscopy History of lumbar spinal fusion Hx of appendectomy Hx of breast reduction, elective Hx of tubal ligation S/P lumbar fusion 03/12/20 Dr. Nicolás Cardoza- #1 removal of posterior instrumentation L3-4 L4- 5 per #2 exploration of fusion L3-4 L4-5. #3 lumbar decompression with bilateral medial facetectomies and foraminotomies L1-2 and L2-3. #4 posterior spinal fusion L2-3. #5 placement posterior instrumentation L2-3. #6 interbody fusion L2-3. #7 placement of peek cage 8 x 22 mm at L2-3. #8 placement locally harvested morselized autograft in the posterior lateral gutters. #9 placement infuse collagen sponge, master graft in the posterior lateral gutters and ostial amp and interbody space. Family History Unknown No pertinent family history Social History Smoking Status: Never smoker Second Hand Exposure: Yes (FATHER SMOKED); Hx Alcohol Use: No Hx Substance Use: No Preferred Language: Russian Communication Ability: Effective Visual Impairment: No Limitations Hearing Ability: Normal Neuro Urologist Required: No Beliefs That Will Affect Care: None marital status: Current Living Situation: Spouse current occupational status: retired Feels Safe at Home: Yes Assistive Devices: Glasses and Walker Physical Exam Physical Exam: On exam the patient is obvious distress. She does have fanta sonable strength testing of bilateral extremities. Incision is well-healed. Results & Data ([facility]) Vital Signs (Past 12 Hours) Vital Signs Temp Pulse Resp BP Pulse Ox 04/28/20 10:14 95 04/28/20 10:13 92 H 14 150/77 H 96 04/28/20 09:01 36.7 C 104 H 16 168/75 H 98 Code Status & VTE Plan VTE Prophylaxis Plan VTE Prophylaxis will be ordered: Yes
[2020-04-28 12:07] LABS: Appearance Urine Clear (Clear); Bacteria Urine Automated Negative (Negative); Bilirubin Urine Negative (Negative); Blood Urine Negative (Negative); Color Urine Yellow; Epithelial Cell Urine Auto 20-30 /lpf (0-5); Glucose Urine UA Negative (Negative); Ketones Urine Trace (Negative); Leukocyte Esterase Urine 1+ (Negative); Nitrite Urine Negative (Negative); Protein Urine Negative (Negative); RBC Urine Automated 0-4 /hpf (0-4); Specific Gravity Urine 1.017 (1.000-1.030); Urobilinogen Urine Negative (Negative)
[2020-04-28] MEDS ORDERED: HYDROmorphone INJ 2 MG/ML SYR/VIAL ONE (12:20)
[2020-04-28] MEDS ORDERED: MIDAZOLAM HCL 1 MG/ML 2ML VIAL ONE (12:20)
--- NOTE | 2020-04-28 12:35 | Anesthesiology Consultation ---
Date of Service April 28, 2020 Assessment & Plan (1) Encounter for pre-operative examination: Chart Review Chart Review: Acceptable Risk for Surgery and Patient NOT seen in Pre Admission Testing COVID neg 04/28/2020. Consults Requested none History Surgery Operation Date: 04/28/20 08:20 Proposed Procedures p L4 Kyphoplasty, - Nicolás Cardoza DO s Reimplant Hardware from L2-L5 - Nicolás Cardoza DO Height/Weight Height: 5 ft 2 in Weight: 53 kg Allergies Allergy/AdvReac Type Severity Reaction Status Date / Time hydrochlorothiazide Allergy Unknown Unknown Verified 04/28/20 09:59 colestipol AdvReac Intermediate "FELT Verified 04/28/20 09:59 AWFUL" lovastatin AdvReac Mild MUSCLE Verified 04/28/20 09:59 ACHES morphine AdvReac Mild mental Verified 04/28/20 09:59 confusion Medications Home Medications Medication Instructions Recorded Confirmed Last Taken blood sugar diagnostic #10 ea 03/03/19 03/08/20 Unknown lancets #50 ea 03/03/19 03/08/20 Unknown montelukast 10 mg tablet 10 mg PO QPM #90 tab 07/01/19 04/28/20 04/27/20 albuterol sulfate 90 mcg/actuation 2 puffs INH Q4H PRN #18 gm 10/27/19 04/28/20 03/11/20 20:00 aerosol inhaler metformin 500 mg tablet 500 mg PO BID #180 tab 10/28/19 04/28/20 04/28/20 tramadol 50 mg tablet 50 mg PO QID PRN #120 tab 01/12/20 04/28/20 04/27/20 PreserVision AREDS 1 tab PO QAM 02/19/20 04/28/20 04/28/20 acetaminophen [Tylenol] 650 mg PO QID PRN 02/19/20 04/28/20 04/27/20 amlodipine [Norvasc] 10 mg PO QAM 02/19/20 04/28/20 04/28/20 aspirin [Adult Low Dose Aspirin] 81 mg PO QAM 02/19/20 04/28/20 04/28/20 atorvastatin 20 mg PO QAM 02/19/20 04/28/20 04/28/20 fluticasone propionate [Flonase 2 sprays INTNAS DAILY PRN 02/19/20 04/28/20 03/11/20 20:00 Allergy Relief] multivitamin 1 tab PO QAM 02/19/20 04/28/20 04/28/20 Past Medical History Medical History Diabetes 1.5, managed as type 2 History of asthma Using albuterol inhaler almost every morning, sometimes in evenings depending on season. HTN (hypertension) Hypercholesterolemia Myofascial pain Osteoporosis Pain of left breast Chronic. Has had mammograms, been seen by breast care center in [place], no etiology. Poor historian Sacroiliitis Past Family History Family History Unknown No pertinent family history Past Surgical History Surgical History (Updated 04/28/20 @ 12:32 by Heber Kaplan MD) H/O hysterectomy for benign disease History of bladder surgery History of cardiac cath NO STENTS NEEDED-MANY YRS AGO History of cataract surgery R/L History of colonoscopy History of lumbar spinal fusion Hx of appendectomy Hx of breast reduction, elective Hx of tubal ligation S/P lumbar fusion 03/12/20. GETA. MAC 3. 7.0 ETT (difficulty placing 7.5). Past Anesthesia History No Hx of Anesthesia Complications and No Family Hx of Anesthesia Complications History of PONV No Hx of PONV and No Hx of Motion Sickness Social History Smoking Status: Never smoker Do You Dip or Chew Tobacco: No Hx Alcohol Use: No Hx Substance Use: No Physical Exam Vital Signs Last Vital Signs Temp 36.7 C 04/28/20 09:01 Pulse 85 04/28/20 12:00 Resp 17 04/28/20 12:00 BP 145/66 H 04/28/20 12:00 Pulse Ox 97 04/28/20 12:00 Testing Laboratory Results 04/28/20 10:02 04/28/20 10:02 Urine Color Yellow 04/28/20 11:56 Urine Appearance Clear (Clear) 04/28/20 11:56 Urine pH 6.0 (4.5-7.5) 04/28/20 11:56 Ur Specific [place] 1.017 (1.000-1.030) 04/28/20 11:56 Urine Protein Negative (Negative) 04/28/20 11:56 Urine Glucose (UA) Negative (Negative) 04/28/20 11:56 Urine Ketones Trace (Negative) H 04/28/20 11:56 Urine Nitrite Negative (Negative) 04/28/20 11:56 Ur Leukocyte Esterase 1+ (Negative) H 04/28/20 11:56 Urine WBC (Auto) 5-10 /hpf (0-5) H 04/28/20 11:56 Urine RBC (Auto) 0-4 /hpf (0-4) 04/28/20 11:56 U Hyaline Cast (Auto) 1-5 /lpf (0-5) 04/28/20 11:56 U Epithel Cells (Auto) 20-30 /lpf (0-5) H 04/28/20 11:56 Urine Bacteria (Auto) Negative (Negative) 04/28/20 11:56 Electrocardiogram Date: 04/28/20 NSR. HR 83. Normal ECG. Chest X-Ray Date: 02/27/20 TWO VIEW CHEST CLINICAL HISTORY: Preoperative examination. FINDINGS: PA and lateral chest radiographs are compared to study dated 10/16/2018. The cardiomediastinal silhouette is unremarkable noting atherosclerotic calcification of the thoracic aorta. The lungs and pleural spaces are clear. There is no pneumothorax. The skeletal structures are osteopenic. A compression deformity is noted at the thoracolumbar junction. Fusion hardware is partially imaged in the lumbar spine. IMPRESSION: No active disease in the chest.
[2020-04-28] MEDS ORDERED: ceFAZolin 1000MG 1,000 MG/7.5 ML SYR IV ONE (13:01)
[2020-04-28] MEDS ORDERED: BUPIVACAINE/EPINEPHRINE 0.5% MPF 1:200,000 30 ML VIAL ONE (13:08)
[2020-04-28] MEDS ORDERED: BACITRACIN INJ 50,000 UNIT VIAL ONE (13:09)
[2020-04-28] MEDS ORDERED: ATROPINE SULFATE 0.1 MG/ML 10ML SYR IV PRN (13:20)
[2020-04-28] MEDS ORDERED: ePHEDrine sulfate 50 MG/ML AMP IV PRN (13:20)
[2020-04-28] MEDS ORDERED: ONDANSETRON INJ 2 MG/ML 2 ML VIAL IV PRN ×3 (13:20→16:27)
[2020-04-28] MEDS ORDERED: IOPAMIDOL INJ 61% 15 ML VIAL ONE ×2 (13:40→14:02)
[2020-04-28] MEDS ORDERED: ONDANSETRON INJ 2 MG/ML 2 ML VIAL ONE (13:56)
[2020-04-28] MEDS ORDERED: LIDOCAINE HCL 2% 2 ML VIAL/AMP(20MG/ML) INFIL ONE (13:56)
[2020-04-28] MEDS ORDERED: DEXAMETHASONE SOD INJ 4 MG/ML VIAL ONE (13:56)
[2020-04-28] MEDS ORDERED: GLYCOPYRROLATE 0.2 MG/ML VIAL ONE (13:56)
[2020-04-28] MEDS ORDERED: ROCURONIUM BROMIDE 10 MG/ML 5 ML VIAL IV ONE (13:57)
[2020-04-28] MEDS ORDERED: LARYING-O-JET KIT (LTA) ONE (13:57)
[2020-04-28] MEDS ORDERED: PROPOFOL IV EMULSION 10 MG/ML 20 ML VIAL IV ONE (13:57)
[2020-04-28] MEDS ORDERED: NEOSTIGMINE METHYLSULFATE 1 MG/ML 10ML VIAL ONE (13:57)
[2020-04-28] MEDS ORDERED: VANCOMYCIN HCL 1000MG/20ML VIAL ONE (14:02)
[2020-04-28] MEDS ORDERED: GENTAMICIN SULFATE 40 MG/ML 2 ML VIAL ONE (14:02)
--- NOTE | 2020-04-28 14:18 | Electrocardiogram Report ---
Test Reason : Blood Pressure : / mmHG Vent. Rate : 083 BPM Atrial Rate : 083 BPM P-R Int : 198 ms QRS Dur : 072 ms QT Int : 368 ms P-R-T Axes : 064 068 072 degrees QTc Int : 432 ms Normal sinus rhythm Normal ECG When compared with ECG of 27-FEB-2020 11:19, No significant change was found Confirmed by Dipak Liu ([id number]) on 04/28/2020 2:17:50 PM Referred By: REFERRED SELF Confirmed By:Markell Liu
--- NOTE | 2020-04-28 14:50 | Operative Report ---
Post Operative Report Pre & Post Diagnosis Operation Date: 04/28/20 08:20 Pre-Op Diagnosis: SEVERE BACK PAIN, FX IN LOWER BACK Post-Op Diagnosis: SEVERE BACK PAIN, FX IN LOWER BACK I identified the patient and participated in the time-out.: Yes Procedure Operation Date: 04/28/20 08:20 Actual Procedures #1 kyphoplasty L4 vertebral body. #2 removal of posterior instrumentation L2- L3. #3 placement of pedicle screws and L5 and extension of the gregorio from L2-L5. Surgeon Nicolás Cardoza, [employer] Customer Experience Advisor Halie Conklin Estimated Blood Loss 50 Findings Consistent with Post-Op Diagnosis Specimens None Indications This is a 74-year-old female who presents with above-mentioned diagnosis Description of Procedure Patient was met with identified informed consent obtained. Patient was then taken to the operative suite underwent an patient placed in a prone position the Simón table on top Lopez frame. All bony prominences well-padded eyes inspected to ensure no external pressure placed upon the. This point the lumbar spine was prepped and draped in a sterile fashion. Sharp dissection with the assistance of Bovie cautery performed down to and exposing the instrumentation at L2 and L3 as well as the lateral fusion and transverse processes of L4-L5. I then proceeded to remove the gregorio at L2-L3 and place a new pedicle screw at L5. Then 2 Kyphon working cannulas were placed within the L4 vertebral body with the assistance of fluoroscopy. Tube 15 mm balloons were inserted and sequentially inflated with fluoroscopic visualization. These were subsequently removed and approximately 6 cc of Kyphon cement injected with fluoroscopic field visualization demonstrating excellent interdigitation into the broken bone. After this complete the proper sized gregorio was placed extending from L2-L5 and locked into position. Approximately 5 cc of stimulant beads impregnated with vancomycin gentamicin were placed throughout the wound. A 15 round drain inserted. Incision was then closed with 1 Vicryl the fascia 2-0 Vicryl subcutaneously and 4 Monocryl for final skin closure. Steri-Strips dressings placed. Patient waken taken PACU in stable condition. Please note Halie Conklin was present at the entire procedure involved the patient positioning complex portions of the surgery and final skin closure. I attest to the content of the Intraoperative Record and any orders documented therein. Any exceptions are noted below.
--- NOTE | 2020-04-28 14:55 | Fluoroscopy Report ---
INTRAOPERATIVE RADIOGRAPHS CLINICAL HISTORY: Kyphoplasty. Fluoroscopy time: 99 seconds. FINDINGS: 2 spot fluoroscopic views of the lumbar spine are presented. There is evidence of previous discectomy at L2-L3 and L4-L5 with laminectomy and posterior fusion from L2-L5. Interpedicular screws are present at all levels with the exception of L4. There is a compression deformity of L4 with kyph oplasty cement in place. Cement extends posteriorly along the right pedicular tract. IMPRESSION: Intraoperative images from an L4 kyphoplasty procedure as above. Electronically signed by: Gordon Banda M.D. 04/28/2020 2:54 PM
[2020-04-28] MEDS: fentaNYL citrate 100 MCG/2 ML VIAL IV PRN ×2 (15:11→15:16)
[2020-04-28] MEDS: HYDROmorphone INJ 1 MG/ML SYRINGE IV PRN ×2 (15:30→15:35)
--- NOTE | 2020-04-28 16:13 | Anesthesiology Progress Note ---
Date of Service April 28, 2020 Anesthesia Post Procedure Vital Signs Vital Signs: Temp Pulse Pulse Resp BP BP Pulse Ox 04/28/20 16:00 36.6 C 94 H 13 150/73 H 98 04/28/20 15:50 36.6 C 92 H 15 135/66 98 04/28/20 15:40 36.6 C 93 H 12 162/80 H 98 04/28/20 15:30 96 H 15 147/80 H 98 04/28/20 15:20 89 11 L 150/78 H 100 04/28/20 15:10 88 13 150/82 H 100 04/28/20 15:04 36.3 C L 80 10 L 152/71 H 100 04/28/20 12:00 85 17 145/66 H 97 04/28/20 11:30 80 15 157/75 H 97 04/28/20 11:00 81 14 148/68 H 97 04/28/20 10:30 85 12 145/70 H 97 04/28/20 10:14 95 04/28/20 10:13 92 H 14 150/77 H 96 04/28/20 09:01 36.7 C 104 H 16 168/75 H 98 Pain Intensity Back: Pain Intensity: 3 Transfer of Care Handoff Completed per policy Notes Mental Status: alert / awake / arousable and participated in evaluation Patient Amnestic to Procedure: Yes Nausea / Vomiting: adequately controlled Pain: adequately controlled Airway Patency, RR, SpO2: stable & adequate BP & HR: stable & adequate Hydration State: stable & adequate Anesthetic Complications: no major complications apparent and Pt Satisfied with anesthetic care
[2020-04-28] MEDS ORDERED: diphenhydrAMINE Capsule 25 MG CAP PO PRN (16:27)
[2020-04-28] MEDS ORDERED: hydrOXYzine HCl 25 MG TAB PO PRN (16:27)
[2020-04-28] MEDS ORDERED: LORazepam 0.5 MG/1 ML VIAL IV PRN (16:27)
[2020-04-28] MEDS ORDERED: MAGNESIUM HYDROXIDE SUSP 30 ML UDC PO PRN (16:27)
[2020-04-28] MEDS ORDERED: ALUMINUM/MAGNESIUM SUSP 30 ML UDC PO PRN (16:27)
[2020-04-28] MEDS ORDERED: LORazepam 1 MG TAB PO PRN (16:27)
[2020-04-28] MEDS ORDERED: ACETAMINOPHEN 500 MG TAB PO PRN (16:27)
[2020-04-28] MEDS ORDERED: ALBUTEROL HFA 8 GM INHALER INH PRN (16:27)
[2020-04-28] MEDS ORDERED: DO NOT ADMINISTER PNEUMOCOCCAL VACCINE PRN (16:27)
[2020-04-28] MEDS ORDERED: DO NOT ADMINISTER FLU VACCINE PRN (16:27)
[2020-04-28] MEDS ORDERED: ACETAMINOPHEN 325 MG TAB PO PRN (16:27)
[2020-04-28] MEDS ORDERED: FAMOTIDINE 20 MG TAB PO PRN (16:27)
[2020-04-28] MEDS ORDERED: ACETAMINOPHEN 1,000 MG/100 ML VIAL IV PRN (16:27)
[2020-04-28] MEDS ORDERED: ONDANSETRON 4 MG OD TAB PO PRN ×2 (16:27)
[2020-04-28] MEDS ORDERED: LORazepam 1 MG/2 ML VIAL IV PRN (16:27)
[2020-04-28] MEDS ORDERED: bisacodyL 10 MG SUPP PR PRN (16:27)
[2020-04-28] MEDS ORDERED: traMADol HCL 50 MG TABLET PO PRN ×2 (16:27→21:10)
[2020-04-28] MEDS ORDERED: FLUTICASONE PROPIONATE NA SPR 16 GM BTL PRN (16:27)
[2020-04-28] MEDS ORDERED: METOCLOPRAMIDE HCL INJ 5 MG/ML 2 ML VIAL IV PRN ×2 (16:27)
[2020-04-28] MEDS ORDERED: oxyCODONE HCL IR 5 MG TAB (IMMEDIATE RELEASE) PO PRN ×2 (16:27)
[2020-04-28] MEDS ORDERED: SOD PHOSPHATE/SOD BIPHOSPHATE ENEMA 132 ML BTL PR PRN (16:27)
[2020-04-28] MEDS ORDERED: HYDROmorphone INJ 0.5 MG/0.5 ML SYR IV PRN ×2 (16:27)
[2020-04-28] MEDS ORDERED: PROMETHAZINE HCL 12.5 MG in SODIUM CHLORIDE 0.9% 50 ML IV PRN (16:27)
[2020-04-28] MEDS ORDERED: LACTATED RINGER'S 1,000 ML IV SCH (16:27)
[2020-04-28] MEDS ORDERED: NALOXONE HCL 0.4 MG/1 ML VIAL/CARP IV PRN (16:27)
[2020-04-28] MEDS ORDERED: LORazepam 0.5 MG TAB PO PRN (16:27)
[2020-04-28] MEDS: SODIUM CHLORIDE 0.9% 1000ML 1,000 ML IV SCH (17:10)
--- NOTE | 2020-04-28 17:22 | Hospitalist Consultation ---
Date of Consultation April 28, 2020 Assessment & Plan (1) Hypercholesterolemia: Routine consult for medical care after kyphoplasty of L4 vertebral body, removal of instrumentation of L2-L3, and placement of pedicle screws OF L5 and extension of the gregorio from L2-L5: contiue statin (2) HTN (hypertension): continue amlodipine BP stable (3) History of asthma: controlled continue montelukast (4) DVT prophylaxis: as per primary service (5) Diabetes 1.5, managed as type 2: consulted glycemic control History of Present Illness Reason for Consultation: medical management Attending Physician: Nicolás Cardoza DO History of Present Illness 74yo F w/ hx of DM, HTN, intractable back pain who presents as a routine consult for medical care after kyphoplasty of L4 vertebral body, removal of instrumentation of L2-L3, and placement of pedicle screws OF L5 and extension of the gregorio from L2-L5 In the immediate post-operative setting, she is comfortable and has no major issues. She reports she is not in any pain. She denies any shortness of breath, denies other pain, denies nausea, vomiting, or other issues. Allergies Allergy/AdvReac Type Severity Reaction Status Date / Time hydrochlorothiazide Allergy Unknown Unknown Verified 04/28/20 09:59 colestipol AdvReac Intermediate "FELT Verified 04/28/20 09:59 AWFUL" lovastatin AdvReac Mild MUSCLE Verified 04/28/20 09:59 ACHES morphine AdvReac Mild mental Verified 04/28/20 09:59 confusion Home Medications Medication Instructions Recorded Confirmed Type blood sugar diagnostic #10 ea 03/03/19 03/08/20 History lancets #50 ea 03/03/19 03/08/20 History montelukast 10 mg tablet 10 mg PO QPM #90 tab 07/01/19 04/28/20 Rx albuterol sulfate 90 mcg/actuation 2 puffs INH Q4H PRN #18 gm 10/27/19 04/28/20 Rx aerosol inhaler metformin 500 mg tablet 500 mg PO BID #180 tab 10/28/19 04/28/20 Rx tramadol 50 mg tablet 50 mg PO QID PRN #120 tab 01/12/20 04/28/20 Rx PreserVision AREDS 1 tab PO QAM 02/19/20 04/28/20 History acetaminophen [Tylenol] 650 mg PO QID PRN 02/19/20 04/28/20 History amlodipine [Norvasc] 10 mg PO QAM 02/19/20 04/28/20 History aspirin [Adult Low Dose Aspirin] 81 mg PO QAM 02/19/20 04/28/20 History atorvastatin 20 mg PO QAM 02/19/20 04/28/20 History fluticasone propionate [Flonase 2 sprays INTNAS DAILY PRN 02/19/20 04/28/20 History Allergy Relief] multivitamin 1 tab PO QAM 02/19/20 04/28/20 History Patient History Medical History Diabetes 1.5, managed as type 2 History of asthma Using albuterol inhaler almost every morning, sometimes in evenings depending on season. HTN (hypertension) Hypercholesterolemia Myofascial pain Osteoporosis Pain of left breast Chronic. Has had mammograms, been seen by breast care center in [place], no etiology. Poor historian Sacroiliitis Surgical History H/O hysterectomy for benign disease History of bladder surgery History of cardiac cath NO STENTS NEEDED-MANY YRS AGO History of cataract surgery R/L History of colonoscopy History of lumbar spinal fusion Hx of appendectomy Hx of breast reduction, elective Hx of tubal ligation S/P lumbar fusion 03/12/20. GETA. MAC 3. 7.0 ETT (difficulty placing 7.5). Family History Unknown No pertinent family history Social History Smoking Status: Never smoker Second Hand Exposure: Yes (FATHER SMOKED); Do You Dip or Chew Tobacco: No; Hx Alcohol Use: Yes Alcohol type: wine Hx Substance Use: No Preferred Language: Bulgarian Communication Ability: Effective Visual Impairment: No Limitations Hearing Ability: Normal Material Expediter Required: No Beliefs That Will Affect Care: None marital status: Current Living Situation: Spouse current occupational status: retired Other Information That Helps Us Care for You: No Feels Safe at Home: Yes Safety Concerns: Feels Safe At This Time Assistive Devices: Glasses and Walker Review of Systems Review of Systems: All systems reviewed & are unremarkable except as noted in HPI & below Physical Exam Physical Exam: Constitutional: WD/WN, vitals as above Eyes: EOM intact bilaterally; no conjunctival abnormality ENMT: external ear and nose normal, oropharynx normal Neck: trachea midline, no thyromegaly normal visual inspection Respiratory: normal respiratory effort, lungs clear to auscultation no respiratory distress Cardiovascular: RRR, no murmur, no edema Gastrointestinal (Abdomen): Inspection/Auscultation: abdomen normal to inspection; abdomen not distended Musculoskeletal: no cyanosis or clubbing, extremities motor strength 5/5 Spine: + lumbar spinal tenderness (Bandage and drain present.) Skin: no rashes, warm and dry Neurologic: moves all extremities and awake Psychiatric: Orientation: alert, oriented to person and cooperative Results & Data Results & Data ([facility]) Vital Signs (Past 12 Hours) Vital Signs Temp Pulse Pulse Resp BP BP Pulse Ox 04/28/20 17:13 36.5 C 91 H 18 130/64 92 04/28/20 16:40 36.5 C 95 H 18 142/73 H 92 04/28/20 16:00 36.6 C 94 H 13 150/73 H 98 04/28/20 15:50 36.6 C 92 H 15 135/66 98 04/28/20 15:40 36.6 C 93 H 12 162/80 H 98 04/28/20 15:30 96 H 15 147/80 H 98 04/28/20 15:20 89 11 L 150/78 H 100 04/28/20 15:10 88 13 150/82 H 100 04/28/20 15:04 36.3 C L 80 10 L 152/71 H 100 04/28/20 12:00 85 17 145/66 H 97 04/28/20 11:30 80 15 157/75 H 97 04/28/20 11:00 81 14 148/68 H 97 04/28/20 10:30 85 12 145/70 H 97 04/28/20 10:14 95 04/28/20 10:13 92 H 14 150/77 H 96 04/28/20 09:01 36.7 C 104 H 16 168/75 H 98 PG Care Time/CCT Total # of Minutes Spent Total Time Spent with Patient: Total time spent is greater than 50% in coordination of care (as documented) at patient's floor/unit and/or counseling patient: Coding Level of Care Code 22925 Inpt Consult Level 3 Diagnoses Hypercholesterolemia E78.00 HTN (hypertension) I10 History of asthma Z87.09 DVT prophylaxis Z29.9 Diabetes 1.5, managed as type 2 E13.9 Time Spent (min) 45
[2020-04-28] MEDS ORDERED: PHARMACY GLYCEMIC MGMT CONSULT PRN (17:29)
[2020-04-28] MEDS ORDERED: CARBOHYDRATES FOR HYPOGLYCEMIA PO PRN (17:30)
[2020-04-28] MEDS ORDERED: DEXTROSE 50% 50 ML SYRINGE IV PRN (17:30)
[2020-04-28] MEDS ORDERED: GLUCOSE 40% GEL 15 GM TUBE PO PRN (17:30)
[2020-04-28] MEDS ORDERED: GLUCAGON FOR INJ 1 MG VIAL IM PRN (17:30)
[2020-04-28] MEDS ORDERED: GLUCOSE 10 TABS/TUBE PO PRN (17:30)
[2020-04-28] MEDS ORDERED: INSULIN GLARGINE SOLOSTAR 100 UNITS/ML 3 ML PEN SC ONE (18:00)
[2020-04-28] MEDS: INSULIN ASPART 100 UNITS/ML 3 ML PEN SC SCH ×2 (18:22→21:46)
[2020-04-28] MEDS: MONTELUKAST SODIUM 10 MG TABLET PO SCH (21:40)
[2020-04-28] MEDS: DOCUSATE SODIUM/SENNA 50/8.6MG TAB PO SCH (21:40)
[2020-04-28] MEDS: ceFAZolin 1000MG 1,000 MG/7.5 ML SYR IV SCH (21:45)
[2020-04-29] MEDS: INSULIN ASPART 100 UNITS/ML 3 ML PEN SC SCH ×6 (00:01→21:41)
[2020-04-29] MEDS: SODIUM CHLORIDE 0.9% 1000ML 1,000 ML IV SCH (03:13)
[2020-04-29] MEDS: POLYETHYLENE (MIRALAX) 17 GM PACK PO SCH ×4 (05:06→23:51)
[2020-04-29] MEDS: ceFAZolin 1000MG 1,000 MG/7.5 ML SYR IV SCH (05:07)
[2020-04-29] MEDS ORDERED: ceFAZolin 1000MG 1,000 MG/7.5 ML SYR IV SCH (06:00)
[2020-04-29] MEDS: traMADol HCL 50 MG TABLET PO PRN ×2 (07:27→18:19)
[2020-04-29 07:36] LABS: Basophils # (auto) 0.01 K/uL (0-0.2); Basophils % (auto) 0.1 %; Hematocrit (blood only) 35.7 % (37-47); Hemoglobin 11.9 g/dL (12.0-16.0); Immature Granulocytes # (auto) 0.07 K/uL (0.00-0.02); Immature Granulocytes % (auto) 0.4 %; Lymphocytes # (auto) 2.34 K/uL (1.2-3.4); Lymphocytes % (auto) 14.2 %; Mean Corpuscular Hemoglobin 32.6 pg (25-34); Mean Corpuscular Hgb Conc 33.3 g/dL (32-36); Mean Corpuscular Volume 97.8 fL (80-100); Mean Platelet Volume 9.3 fL (7.4-10.4); Monocytes # (auto) 1.44 K/uL (0.11-0.59); Monocytes % (auto) 8.7 %; Neutrophils # (auto) 12.62 K/uL (1.4-6.5); Neutrophils % (auto) 76.6 %; Platelet Count 517 K/uL (130-400); RDW Coefficient of Variation 12.6 % (11.5-14.5); RDW Standard Deviation 45.1 fL (36.4-46.3); Red Blood Count 3.65 M/uL (4.2-5.4); White Blood Count 16.48 K/uL (4.8-10.8)
[2020-04-29 08:02] LABS: BUN Creatinine Ratio 24.6 (10-20); Calcium 9.4 mg/dl (8.5-10.1); Creatinine Clr Calc Pharmacy 49.4 ml/min; Est GFR (African American) 85.5; Est GFR (Non-African American) 73.7; Potassium 3.5 mmol/L (3.5-5.1)
[2020-04-29] MEDS ORDERED: NON-FORMULARY MEDICATION (Vitamins A,C,E-Zinc-Copper [Preservision Areds] 7,160-113-100 u PO SCH (09:00)
[2020-04-29] MEDS ORDERED: NovoLIN-N (NPH) PER UNIT CHARGE SQ ONE (09:00)
--- NOTE | 2020-04-29 09:09 | Pharmacy Report ---
Glycemic Control Consultation - Date of Service April 29, 2020 - Scope Scope: Glycemic Pharmacist consulted for glycemic control and to write orders per [facility] inpatient glycemic control protocol. - Objective Weight: 53 kg Accuchecks BSG (last 24hrs): 04/28/20 04/28/20 04/28/20 10:02 15:05 17:10 Glucose 172 H POC Glucose 190 H 248 H 04/28/20 04/28/20 04/29/20 20:41 23:58 03:58 Glucose POC Glucose 271 H 253 H 218 H 04/29/20 04/29/20 07:14 08:05 Glucose 162 H POC Glucose 168 H Laboratory Data (last 24hrs): 04/28/20 04/29/20 10:02 07:14 Potassium 3.3 L 3.5 Carbon Dioxide 29 27 Anion Gap 7.0 7.0 Creatinine 0.58 L 0.79 Est Cr Clr Drug Dosing 67.3 49.4 - Recent Pertinent Medications Outpatient Anti-diabetic Regimen: * Metformin * A1c = 7.5 % on 02/27/20 The patient is currently receiving: * Basal insulin: Lantus 26 units x1 12/2 PM * Correctional Insulin: Novolog Correction per scale ACHS Goal Range: Low 110 mg/dL - High 140 mg/dL Correction Factor: 20 mg/dL/unit * Prandial insulin: Per carb ratio of 1 unit per 7 grams CHO consumed * Oral Agents: On hold Risk Factors for Insulin Resistance: * Steroids: Dexamethasone 10 mg IV x1 12/2 AM * Recent Surgery: POD 1 s/p kyphoplasty of L4 vertebral body, removal of instrumentation of L2-L3, and placement of pedicle screws of L5 and extension of the gregorio from L2-L5 * Diet: T2DM - Assessment & Plan Assessment & Plan: ASSESSMENT: * 74 yo F with diabetes type 1.5 (managed as type 2), well controlled on only one oral agent as an outpatient admitted s/p surgery. Hyperglycemia 2nd dexamethasone administered intraop. * AM fasting BSG slightly above goal for post-surgical patient. For fasting acting effect, and to help manage post-prandial spikes possible due to persistent effects of dexamethasone, will give one-time NPH dose this AM. Plan to continue with Lantus this evening, although a reduced dose 2nd steroid effects likely dissipating overnight tonight * OK to keep tighter Novolog parameters in AM 2nd significant elevations in BSG yesterday, but loosened at dinner as anticipating steroid effects to wear off and initial Novolog parameters were tight from a weight-based estimate PLAN FOR INPATIENT GLYCEMIC CONTROL: * Holding outpatient oral diabetes medications * Basal insulin * NPH 10 units SQ x1 now * Lantus 15-20 units HS, depending on BSG * Bolus insulin * NovoLog per scale ACHS or Q6hrs while NPO * Goal Range: Low 110 mg/dL - High 140 mg/dL * Correction Factor: 30 mg/dL/unit * Nutritional / Prandial insulin per carb ratio of 1 unit per 10 grams CHO consumed * Please note that the plan above was derived based on current level of insulin resistance and hospital stress. These recommendations are appropriate for inpatient admission only. Plan of care upon discharge will need to be reassessed to avoid potential outpatient hypo/hyperglycemia. Thank you.
[2020-04-29] MEDS: ASPIRIN 81 MG ECTAB PO SCH (09:18)
[2020-04-29] MEDS: ATORVASTATIN 20 MG TAB PO SCH (09:18)
[2020-04-29] MEDS: MULTIVITAMIN TAB PO SCH (09:18)
--- NOTE | 2020-04-29 10:02 | Orthopedic Progress Note ---
Date of Service April 29, 2020 Assessment & Plan (1) Compression fracture of L4 vertebra: Admission and Anticipated Discharge Date Admission Date: April 28, 2020 Patient status post kyphoplasty with posterior instrumentation. This time we will continue physical therapy monitor [facility] output hopefully discharge home soon as possible. Subjective Back pain improved no leg pain. Physical Exam Physical Exam: Patient appears quite comfortable skin strength testing. Results & Data ([facility]) Vital Signs (Past 12 Hours) Vital Signs Temp Pulse Resp BP Pulse Ox 04/29/20 07:21 36.7 C 88 16 146/71 H 95 04/29/20 03:07 36.8 C 90 14 132/65 95 04/28/20 22:59 37.2 C 88 14 132/68 95 (1) Compression fracture of L4 vertebra Encounter type: initial encounter Qualified Code(s): S32.040A - Wedge compression fracture of fourth lumbar vertebra, initial encounter for closed fracture
[2020-04-29] MEDS: amLODIPine BESYLATE 5 MG TAB PO SCH (10:23)
--- NOTE | 2020-04-29 16:38 | Hospitalist Progress Note ---
Date of Service April 29, 2020 Assessment & Plan (1) Intractable back pain: S/p kyphoplasty of L4 vertebral body, removal of instrumentation of L2-L3, placement of pedicle screws of L5, and extension of the gregorio from L2-L5. - Doing well overall. - Routine post-operative care per primary team. - Expected acute blood loss anemia after surgery - Will give 2 doses of IV iron. (2) HTN (hypertension): BP stable at 135/70 today. - Continue amlodipine (3) Hypercholesterolemia: - Continue statin (4) History of asthma: Controlled. No report of shortness of breath today. - Continue montelukast (5) Diabetes 1.5, managed as type 2: A1c was 7.5% in 02/2020. - Consulted glycemic control - Sugars under acceptable control today ~150. (6) DVT prophylaxis: As per primary service. Given medical stability, Hospital Medicine team will sign off. Please re-consult with any questions or concerns. Thank you for letting us assist in the care of this patient! Admission and Anticipated Discharge Date Admission Date: April 28, 2020 Subjective Some back pain, but otherwise in good health. Reports no fevers/chills, chest pain, shortness of breath, abdominal pain, nausea, or vomiting. Physical Exam Constitutional: WD/WN, vitals as above Eyes: EOM intact bilaterally; no conjunctival abnormality ENMT: external ear and nose normal, oropharynx normal Neck: trachea midline, no thyromegaly normal visual inspection Respiratory: normal respiratory effort, lungs clear to auscultation no respiratory distress Cardiovascular: RRR, no murmur, no edema Gastrointestinal (Abdomen): Inspection/Auscultation: abdomen normal to inspection; abdomen not distended Musculoskeletal: no cyanosis or clubbing, extremities motor strength 5/5 Skin: no rashes, warm and dry Neurologic: moves all extremities and awake Psychiatric: Orientation: alert, oriented to person and cooperative Results & Data Results & Data ([facility]) Vital Signs (Past 12 Hours) Vital Signs Temp Pulse Resp BP Pulse Ox 04/29/20 15:25 36.8 C 81 18 135/69 97 04/29/20 07:21 36.7 C 88 16 146/71 H 95 PG Care Time/CCT Total # of Minutes Spent Total Time Spent with Patient: Total time spent is greater than 50% in coordination of care (as documented) at patient's floor/unit and/or counseling patient: Coding Level of Care Code 78266 Subseq Hosp Care Lvl 2 Diagnoses Intractable back pain M54.9 HTN (hypertension) I10 Hypercholesterolemia E78.00 History of asthma Z87.09 Diabetes 1.5, managed as type 2 E13.9 DVT prophylaxis Z29.9
[2020-04-29] MEDS: DOCUSATE SODIUM/SENNA 50/8.6MG TAB PO SCH (19:52)
[2020-04-29] MEDS: MONTELUKAST SODIUM 10 MG TABLET PO SCH (19:52)
[2020-04-29] MEDS ORDERED: INSULIN GLARGINE SOLOSTAR 100 UNITS/ML 3 ML PEN SC SCH (21:00)
[2020-04-29] MEDS ORDERED: IRON SUCROSE 300 MG in SODIUM CHLORIDE 0.9% 250 ML IV SCH (21:00)
[2020-04-30] MEDS: POLYETHYLENE (MIRALAX) 17 GM PACK PO SCH ×2 (06:00→11:48)
[2020-04-30 07:15] LABS: Hematocrit (blood only) 32.9 % (37-47); Mean Corpuscular Hgb Conc 33.4 g/dL (32-36); Mean Corpuscular Volume 98.8 fL (80-100); Mean Platelet Volume 9.2 fL (7.4-10.4); Platelet Count 417 K/uL (130-400); RDW Standard Deviation 46.7 fL (36.4-46.3); Red Blood Count 3.33 M/uL (4.2-5.4); White Blood Count 11.97 K/uL (4.8-10.8)
[2020-04-30 07:42] LABS: BUN Creatinine Ratio 23.5 (10-20); Calcium 8.7 mg/dl (8.5-10.1); Creatinine Clr Calc Pharmacy 75.1 ml/min; Est GFR (African American) 109.1; Est GFR (Non-African American) 94.1; Magnesium 1.4 mg/dl (1.8-2.4); Potassium 2.8 mmol/L (3.5-5.1)
[2020-04-30] MEDS: amLODIPine BESYLATE 5 MG TAB PO SCH (07:48)
[2020-04-30] MEDS: ASPIRIN 81 MG ECTAB PO SCH (07:49)
[2020-04-30] MEDS: MULTIVITAMIN TAB PO SCH (07:49)
[2020-04-30] MEDS: INSULIN ASPART 100 UNITS/ML 3 ML PEN SC SCH ×2 (07:52→13:18)
[2020-04-30] MEDS: ATORVASTATIN 20 MG TAB PO SCH (08:10)
--- NOTE | 2020-04-30 10:59 | Discharge Summary ---
Date of Service April 30, 2020 Admission HPI Per Admitting Provider This is a 74-year-old female well-known to me that status post lumbar decompression fusion L2-L3. Unfortunately her postoperative course was presented with advanced collapse of the L4 vertebral body consistent with a compression fracture. She was seen yesterday and imaging in the office demonstrated further collapse of the superior endplate beyond 50%. MRI confirmed the acuity. She is marked pain and presents the emergency room this morning with worsening symptoms. Subsequently she will be admitted for stabilization. Principal Diagnosis Compression fracture L4 Discharge Data Allergies Allergy/AdvReac Type Severity Reaction Status Date / Time hydrochlorothiazide Allergy Unknown Unknown Verified 04/28/20 09:59 colestipol AdvReac Intermediate "FELT Verified 04/28/20 09:59 AWFUL" lovastatin AdvReac Mild MUSCLE Verified 04/28/20 09:59 ACHES morphine AdvReac Mild mental Verified 04/28/20 09:59 confusion Consultations 04/28/20 10:31 ED Decision to Admit Stat 04/28/20 16:27 Consult Case Management - Discharge Planning Routine Consult Hospitalist Routine Procedures Performed Operation Date: 04/28/20 08:20 Actual Procedures s L4 Kyphoplasty, Application of Stimulan Beads - Nicolás Cardoza DO p Reimplant Hardware from L2-L5 - Nicolás Cardoza DO Ordered Studies 04/28/20 13:00 FL fluoroscopy <1hr Routine FL lumbar spine 2-3V Routine Hospital Course (1) Compression fracture of L4 vertebra: Patient underwent kyphoplasty with posterior stabilization tolerated this well was taken to orthopedic floor postoperative. Postop day 1 she was up and ambulating back pain improved nicely. Postop day #2 pain was well controlled BAYRON drain decreasing probably. Simply discharge home. Discharge orders instructions from the chart for further view. Total Time Total Time Spent Total Time Spent (In Minutes): 20 minutes Discharge Plan Discharge Items Patient Disposition: Home - Self-Care Reason For Visit: LUMBAR COMPRESSION FRACTURE Discharge Diagnosis: Lumbar compression fracture Activity: As commented below Non-emergency contact: Primary Care Provider Call non-emergency contact if: you have any medication questions Follow-up/Referrals: Gordon Sellers MD [Primary Care Provider] - Diet: Regular Addtl Attending Provider Instructions: ACTIVITY RECOMMENDATIONS: SELF CARE INSTRUCTIONS AFTER THORACIC/LUMBAR FUSIONS 1. You may walk to your tolerance. It is good exercise for your legs and back. Expect some back and intermittent leg aches and pains. 2. You may perform "counter-top" level activities (make a sandwich, bella with a project, etc.). 3. No bending or lifting of more than 10 pounds or back twisting of any nature (roll like a log when turning in bed). 4. You may ride in a car for 20-30 minutes at a time. No driving until after your first visit with your doctor. 5. Frequent changes of position and restricting sitting to 30 minutes at a time will help limit the amount of back spasms and stiffness you may experience. 6. You may discontinue the use of ambulatory aids (cane, crutches, etc.) once your strength and confidence allow. 7. You may radio antenna installer the shower and let water strike your incision when you arrive home at least once daily. Do not take a tub bath, sit in a hot tub or go into a swimming pool until after your first recheck in the office. SPECIAL CARE INSTRUCTIONS: VERY IMPORTANT TO READ AND REVIEW A. Your surgical incision has been closed with a cosmetic suture under the skin that will dissolve in about 6 weeks. In 14 days, you can use a pair of clean scissors and cut the suture that is left outside of the skin at the ends of your incision. 1. The small skin tapes can be removed 7 days after surgery if they have not fallen off by that point. 2. You may keep the wound open to air as much as possible to promote healing after post-op day number 5 unless told otherwise by your doctor. 3. If you think the wound looks like it is becoming infected (redness or worsening drainage) and/or you are experiencing fever, chill or worsening back pain and muscle spasms, contact the office so that we may evaluate you as soon as possible. B. Complications are uncommon, but please contact us if you have any signs or symptoms of: 1. wound infection (fever higher than 102.5 degrees F, redness, separation of wound, drainage, or increasing pain from the incision) 2. blood clots in legs (pain, swelling, redness and warmth in legs) 3. urinary tract infection (fever higher than 102.5 degrees F, burning upon urination or increased frequency of urination) 4. nerve problems (inability to walk on your toes or heels, numbness, loss of bowel or bladder control) 5. any other symptoms that concern you C. Please call the office at if you have any concerns or questions about your operation or recovery. D. No smoking! Smoking drastically decreases the chance of a solid fusion. E. Do not take any anti-inflammatory medications (Indocin, Advil, Motrin, Aspirin, Naprosyn, etc.) as these may inhibit the chance of a solid fusion. Tylenol is okay to take for pain. MANAGING PAIN AFTER SPINAL SURGERY 1. Narcotic medication is intended for short-term use and will be provided for surgical pain. Surgical pain usually lasts for a period of 4-6 weeks. Narcotic medication includes Percocet, Vicodin, Darvocet, Tylenol #3 or Lortab. 2. Longer-term pain is more appropriately treated with non-narcotic medication such as Tylenol ES. 3. Muscle spasm is not appropriately treated with narcotics. Muscle relaxers such as Soma, Flexeril or Skelaxin can be used along with Tylenol ES. 4. Remember that we all live with some "aches and pains". This is not unusual or uncommon after an injury or as we get older. a. Back pain is expected and may include muscle spasms for 4 to 6 weeks after surgery. The pain should gradually improve. If the pain worsens for no apparent reason, please contact the office. b. Intermittent leg pain may also be experienced and should not be concerned about unless it worsens for no apparent reason. If so, please contact the office. 5. We will provide appropriate medication within the normal guidelines of their prescribed use. We will also be very cautious and aware of potential abuse and extended duration of patients' medication needs. a. Pain medications are for your comfort and to assist with sleep and rest so that the tissue can heal. They are not provided in order to return to normal activity and should not be used through the day. To do so or worsening pain at night can result from ongoing tissue damage and development of tolerance to the prescribed medicine. 6. Please allow 2-3 days to process refills. Prescriptions will not be mailed but must be picked up at the office. FOLLOW UP VISIT: Keep your scheduled follow-up appointment. Any questions, please call the office at . Pending Studies at Discharge: No Stand-Alone Forms: [facility], Smoking Cessation Medications and DC Order Prescriptions: New tramadol 50 mg tablet 50 mg PO Q6H PRN (Reason: pain, moderate) Qty: 20 RF: 0 oxycodone 5 mg tablet 5 mg PO Q6H PRN (Reason: pain, severe) Qty: 15 RF: 0 Continued montelukast 10 mg tablet 10 mg PO QPM Qty: 90 RF: 3 metformin 500 mg tablet 500 mg PO BID Qty: 180 RF: 3 tramadol 50 mg tablet 50 mg PO QID PRN (Reason: pain) Qty: 120 RF: 2 (DME) OneTouch Ultra Blue Test Strip strip See Dose Instructions .ROUTE .MEDSUPPLY Qty: 10 RF: 0 (DME) lancets [OneTouch UltraSoft Lancets] misc See Dose Instructions .ROUTE .MEDSUPPLY Qty: 50 RF: 0 albuterol sulfate [Ventolin HFA] 90 mcg/actuation HFA aerosol inhaler 2 puffs INH Q4H PRN (Reason: shortness of breath or wheezing) Qty: 18 RF: 5 multivitamin tablet 1 tab PO QAM RF: 0 atorvastatin 20 mg tablet 20 mg PO QAM RF: 0 aspirin [Adult Low Dose Aspirin] 81 mg tablet,delayed release (DR/EC) 81 mg PO QAM RF: 0 amlodipine [Norvasc] 10 mg tablet 10 mg PO QAM RF: 0 fluticasone propionate [Flonase Allergy Relief] 50 mcg/actuation spray,suspension 2 sprays INTNAS DAILY PRN (Reason: Allergy Symptoms) RF: 0 PreserVision AREDS [id number] Tablet 1 tab PO QAM RF: 0 acetaminophen [Tylenol] 325 mg Capsule 650 mg PO QID PRN (Reason: Pain) RF: 0 Discharge Orders: Discharge Order (Routine); Ordered 04/30/20 Ordered By: Nicolás Cardoza Admission Data Admit Date/Time: 04/28/20 15:42 Attending Provider: Nicolás Cardoza Admit Provider: Nicolás Cardoza Primary Care Provider: Gordon Sellers Other Providers: Nicolás Cardoza ; Edinson Torres
[2020-04-30] MEDS: traMADol HCL 50 MG TABLET PO PRN (11:44)
[2020-04-30] MEDS ORDERED: POTASSIUM CHLORIDE CRTAB 20 MEQ TABCR PO STA (13:36)
--- NOTE | 2020-04-30 14:38 | Pharmacy Report ---
Pharmacy Glycemic Short Note 2 - Date of Service April 30, 2020 - Glycemic Short BSG Results (Last 24 hours): 04/29/20 04/29/20 04/30/20 17:11 20:44 06:38 Glucose 83 POC Glucose 120 H 163 H 04/30/20 04/30/20 07:34 12:00 Glucose POC Glucose 89 151 H Outpatient Anti-diabetic Regimen: * Metformin * A1c = 7.5 % on 02/27/20 Risk Factors for Insulin Resistance: * Steroids: Dexamethasone 10 mg IV x1 04/28 AM * Recent Surgery: POD 2 s/p kyphoplasty of L4 vertebral body, removal of instrumentation of L2-L3, and placement of pedicle screws of L5 and extension of the gregorio from L2-L5 * Diet: T2DM ASSESSMENT: 04/30 * AM fasting BSG below goal. Will decrease Lantus and split BID * Steroid effects likely dissipated by now. 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 Hyperglycemia 2nd dexamethasone administered intraop. * AM fasting BSG slightly above goal for post-surgical patient. For fasting acting effect, and to help manage post-prandial spikes possible due to persistent effects of dexamethasone, will give one-time NPH dose this AM. P iam to continue with Lantus this evening, although a reduced dose 2nd steroid effects likely dissipating overnight tonight * OK to keep tighter Novolog parameters in AM 2nd significant elevations in BSG yesterday, but loosened at dinner as anticipating steroid effects to wear off and initial Novolog parameters were tight from a weight-based estimate PLAN FOR INPATIENT GLYCEMIC CONTROL: * Hold outpatient oral diabetes medications * Basal insulin * Lantus 10-15 units SQ HS, depending on BSG * Lantus 0-10 units SQ qAM, depending on BSG * Bolus insulin * NovoLog per scale ACHS or Q6hrs while NPO * Goal Range: Low 110 mg/dL - High 140 mg/dL * Correction Factor: 35 mg/dL/unit * Nutritional / Prandial insulin per carb ratio of 1 unit per 13 grams CHO consumed
[2020-05-01] MEDS ORDERED: INSULIN GLARGINE SOLOSTAR 100 UNITS/ML 3 ML PEN SC SCH (09:00)
--- NOTE | 2020-05-09 14:10 | Coding Query ---
To promote full compliance with coding requirements relating to patient care, physician participation is requested in all cases of director of front office uncertainty. Please assist us with the question(s) below: Coding Question(s): It was noted throughout the record that the patient has/is suspected to have osteoporosis. According to coding guidelines "a code for osteoporotic fracture, and not a traumatic fracture, should be used for any patient with known osteoporosis who suffers a fracture, even if the patient had a minor fall or trauma, if that fall or trauma would not usually break a normal, healthy bone." Please indicate below the type of fracture: Physician's Response(s): ( x ) Osteoporotic Compression fracture of L4 Lumbar Vertebra ( ) Traumatic Compression fracture of L4 Lumbar Vertebra ( ) Nontraumatic and Non-Osteoporotic Compression Fracture Unspecified of L4 Lumbar Vertebra ( ) Other, please specify ( ) Unable to be determined MTDD
== END 2020-04-30 15:16 | disposition home or self-care (01) | DRG 518 ==
LOC: ED 08:54 → 3W 12:20